=== PATIENT | female | born 1995 ===

== ENCOUNTER 2022-08-13 00:55 | Emergency (ER) | payer BC, SELFPAY ==
--- NOTE | 2022-08-13 00:57 | CRLHL7_ITS ---
For Patients: As a result of the Century Cures Act, medical imaging exams and procedure reports are released immediately into your electronic medical record. You may view this report before your referring provider. If you have questions, please contact your health care provider. INDICATION: Vaginal bleeding TECHNIQUE: Ultrasound OB pelvis transvaginal. Real time newman scale imaging of the pelvis was performed. COMPARISON: None FINDINGS: Gestational Sac: No intrauterine gestational sac or pole is identified. Uterus: 6.6 x 4 cm. There is an echogenic lesion in the uterine fundus measuring 2 cm in diameter which may represent a lipoleiomyoma. The endometrium is thickened and heterogeneous in appearance, measuring 12 mm. Small nabothian cysts are present in the cervix. Pelvis: The ovaries are of normal size. No adnexal masses are identified. No significant ascites noted. IMPRESSION: 1. No intrauterine IUP is identified. By the 2012 Society of Radiologists in Ultrasound consensus panel criteria, this is a of unknown location. Followup beta HCG and ultrasound is recommended to distinguish between a normal early IUP, complete , or ectopic . 2. If a spontaneous is clinically confirmed, followup is also recommended to exclude retained products of conception given the thickened, heterogeneous appearance to the endometrium. Dictated by Brian Lopez MD @ 08/13/2022 2:17:21 AM Dictated by: Brian Lopez MD @ 08/13/2022 02:17:31 (Electronically Signed)
[2022-08-13 01:00] VITALS: BP 122/80; PULSE 79; RESP 16; TEMP 37.1; O2SAT 98; BMI 25.1
--- NOTE | 2022-08-13 01:02 | ED.GENADULT ---
HPI - General Adult General Time Seen by Provider: 01:02 Date Seen: 08/13/22 Chief complaint: Vaginal Bleeding Stated complaint: Possible Miscarriage Time Seen by Provider: 08/13/22 00:57 Source: patient Mode of arrival: ambulatory Limitations: no limitations History of Present Illness HPI narrative: 27-year-old at 8+ 1 by LMP of June 17 who presents today vaginal bleeding and cramping started 5 hours prior to coming emergency department. Bleeding is more than a usual menstrual cycle and she reports ?soaking it tampon every hour. Abdominal pain is low and crampy. She has not taken anything for her symptoms. She denies shortness of breath or dizziness. Related Data Home Medications Medication Instructions Recorded Confirmed sertraline 100 mg tablet mg 08/13/22 Allergies Allergy/AdvReac Type Severity Reaction Status Date / Time tramadol AdvReac racing Verified 08/13/22 01:07 heart Review of Systems Status of ROS: Reports: 10 or more systems reviewed and unremarkable except as noted in History and below PFSH PFSH Social History Smoking Status: Never smoker How often do you have a drink containing alcohol: never AUDIT-C Alcohol total score: 0 Non-prescribed substance use: denies use Exam Narrative: Exam Narrative: General: Well-developed and well-nourished, no acute distress Head: Atraumatic and normocephalic Eyes: Pupils are equal reactive, extraocular motions intact, conjunctiva clear ENT: External nose and ears are normal, posterior pharynx without erythema or exudate Neck: No midline cervical tenderness, full spontaneous range of motion the neck, trachea midline, no adenopathy Heart: Regular rate and rhythm no murmurs or thrills Lungs: Clear to auscultation bilaterally without wheezes or crackles Abdomen: Soft, nontender, nondistended with active bowel sounds Musculoskeletal: No tenderness, deformity, or edema Neurologic: Awake, alert, and oriented x3, no gross focal neurologic deficits, cranial nerves intact as tested Psych: Mood and affect are appropriate Skin: No rashes Const: Vital Signs, click to edit/add: Vital Signs - 24 hr 08/13/22 01:00 Temperature 98.7 F Pulse Rate [Left P ulse Oximeter] 79 Respiratory Rate 16 Blood Pressure [Ri ght Upper Arm] 122/80 Pulse Oximetry 98 Oxygen Delivery Me thod Room Air Course Course Hospital Course: Patient seen examined, prior records reviewed. Differential diagnosis includes but not limited to subchorionic hemorrhage, miscarriage, vaginal laceration, cervical laceration. Patient presents today with vaginal bleeding low abdominal cramping, 1st trimester . Comfortable on exam with no tachycardia or hypotension. Labs and ultrasound ordered, pelvic exam will be performed. Reevaluation(s) Reevaluation #1: Chaperoned pelvic exam performed. Light to moderate bleeding from closed os. Time: 01:44 Reevaluation #2: Labs demonstrate normal hemoglobin, beta-hCG is 661 which is significantly lower movement be expected for based on dates. Ultrasound demonstrates blood in the endometrial canal but no evidence for intrauterine or gestational sac No evidence for ectopic . Symptoms tonight are most consistent with miscarriage. Patient is stable for discharge and should follow-up with hydraulic bull riveter operator in the morning. As no definite intrauterine or extrauterine is found today, patient will need follow-up beta-hCG and follow-up ultrasound to confirm either miscarriage or early ectopic. Time: 02:13 Vital Signs Vital signs: Initial Vital Signs Temperature 98.7 F 08/13/22 01:00 Temperature Source Temporal Artery Scan 08/13/22 01:00 Pulse Rate 79 08/13/22 01:00 Respiratory Rate 16 08/13/22 01:00 Blood Pressure 122/80 08/13/22 01:00 Blood Pressure Mean 94 08/13/22 01:00 Blood Pressure Position Supine 08/13/22 01:00 Pulse Oximetry 98 08/13/22 01:00 Oxygen Delivery Method 08/13/22 01:00 Vital Signs Temperature 98.7 F 08/13/22 01:00 Pulse Rate 79 08/13/22 01:00 Respiratory Rate 16 08/13/22 01:00 Blood Pressure 122/80 08/13/22 01:00 Pulse Oximetry 98 08/13/22 01:00 Oxygen Delivery Method 08/13/22 01:00 Temperature 98.7 F 08/13/22 01:00 Pulse Rate 79 08/13/22 01:00 Respiratory Rate 16 08/13/22 01:00 Blood Pressure 122/80 08/13/22 01:00 Pulse Oximetry 98 08/13/22 01:00 Oxygen Delivery Method 08/13/22 01:00 Medical Decision Making Medical Records Medical records reviewed: Yes I reviewed the patient's medical records Lab Data Lab results reviewed: Yes I reviewed the patient's lab results Labs: Lab Results 08/13/22 08/13/22 Range/Units 01:20 01:20 WBC 9.53 (4.50-11.00) K/uL RBC 4.63 (4.00-5.20) m/uL Hgb 13.8 (12.0-16.0) gm/dL Hct 41.4 (33.0-51.0) % MCV 89 (80-100) fL MCH 30 (26-34) pg MCHC 33 (32-36) gm/dL RDW Coeff of Heath 13.2 (11.5-15.5) % Plt Count 223 (140-440) K/uL Neut % (Auto) 56.7 (42.0-72.0) % Lymph % (Auto) 32.1 (20-44) % [place] % (Auto) 7.8 (0.0-11.0) % Eos % (Auto) 2.8 (0.0-7.0) % Baso % (Auto) 0.3 (0.0-3.0) % Neut # (Auto) 5.40 (1.7-7.0) K/uL Lymph # (Auto) 3.06 H (0.90-2.90) K/uL [place] # (Auto) 0.70 (0.00-0.90) K/UL Eos # (Auto) 0.27 (0.00-0.50) K/uL Baso # (Auto) 0.03 (0.00-0.30) K/uL Abs Immat Gran (auto) 0.03 (0.00-0.30) K/uL HCG, Quant 661.96 mIU/mL Discharge Plan Discharge Clinical Impression: Threatened Patient Disposition: Home, Self-Care Condition: Stable Instructions: Threatened Miscarriage (ED) Additional Instructions: Take Tylenol oxycodone as needed for pain. Follow-up with your hydraulic bull riveter operator today. Activity Level: No strenuous activity Discharge Diet: Regular Prescriptions: No Action sertraline 100 mg tablet Follow Up/Referrals: Tammy Waite MD [Staff Physician] - Provider,Not a Local [Referring] - Stand Alone Forms: [employer] Info Instructions
--- OUTSIDE RECORDS SUMMARY | 2022-08-13 01:25 | XMS_ITS | Clinical Summary ---
:1995 Author Organization [facility] Address [address] [place] [address] Care Team Providers Name Role Phone [facility], [facility]- Allergies Active Allergy Reactions Severity Noted Date Comments Oxymetazoline Rash Low 03/10/2022 Tramadol Dizziness Low 03/10/2022 Medications Medication Sig Dispensed Refills Start Date End Date Status sertraline (ZOLOFT) Take 100 mg by mouth 0 2 Active 100 MG tablet daily oxyCODONE IR Take 1-2 tablets 20 tablet 0 03/11/2022 Active (ROXICODONE) 5 MG (5-10 mg) by mouth tabletIndications: every 6 hours as Epistaxis needed for moderate to severe pain or breakthrough pain This medicine can make you sleepy! Do not take this while driving, operating heavy machinery, working, or with alcohol. sodium chloride [place] 1 spray into 0 03/11/2022 Active (OCEAN) 0.65 % left nostril 4 times nasal spray daily Active Problems Problem Noted Date Epistaxis 03/11/2022 Social History Tobacco Use Types Packs/Day Years Used Date Never Assessed Sex Assigned at Date Recorded Not on file Last Filed Vital Signs Vital Sign Reading Time Taken Comments Blood Pressure 137/90 03/11/2022 9:00 AM CDT Pulse 64 03/11/2022 9:00 AM CDT Temperature 36.9 ??C (98.4 ??F) 03/11/2022 9:00 AM CDT Respiratory Rate 16 03/11/2022 9:00 AM CDT Oxygen Saturation 98% 03/11/2022 9:00 AM CDT Inhaled Oxygen Concentration - - Weight 72.6 kg (160 lb) 03/11/2022 3:47 AM CDT Height 170.2 cm (5' 7) 03/11/2022 3:47 AM CDT Body Mass Index 25.06 03/11/2022 3:47 AM CDT Plan of Treatment Health Maintenance Due Date Last Done Comments ADVANCE CARE PLANNING 1993 ANNUAL REVIEW OF HM ORDERS 1993 PREVENTIVE CARE VISIT 1993 COVID-19 Vaccine (#1) 02/07/1994 HIV SCREENING 2008 HEPATITIS C SCREENING 2011 DTAP/TDAP/TD IMMUNIZATION (1 - 2018 Tdap) PHQ-2 (once per calendar year) 2021 INFLUENZA VACCINE (#1) 2022 PAP 06/18/2024 06/18/2021 HEPATITIS B IMMUNIZATION Aged Out No long er eligible based on patient's age to complete this topic IPV IMMUNIZATION Aged Out No longer eligi ble based on patient's age to complete this topic MENINGITIS IMMUNIZATION Aged Out No longe r eligible based on patient's age to complete this topic Pneumococcal Vaccine: Pediatrics Aged Out No longer eligible based on (0 to 5 Years) and At-Risk patie nt's age to complete Patients (6 to 64 Years) this to [facility] Insurance Payer Benefit Plan / Subscriber ID Effective Dates Phone Addre ss Type Group BCBS BCBS OUT OF [id number] 2020-Prese [phone] [address] [address] [place] [address] Advance Directives For more information, please contact: [phone] Latest Code Status on File Code Status Date Activated Date Inactivated Comments Full Code 03/11/2022 4:07 PM Code status determined by: Discussion with patient/ legal de cision maker Full Code 03/11/2022 2:21 AM 03/11/2022 4:07 PM All basic an d advanced life-sustaining interventions ar e performed as appropriate Code status determined by: Discussion with patient/ legal de cision maker Care Teams Manager Web Application Relationship Specialty Start Date End Date [facility] And PCP - General 03/10/22 [facility] [address] [place] [id number]
[2022-08-13 01:26] LABS: Basophils Absolute Auto 0.03 K/uL (0.00-0.30); Basophils Percent Auto 0.3 % (0.0-3.0); Eosinophils Absolute Auto 0.27 K/uL (0.00-0.50); Eosinophils Percent Auto 2.8 % (0.0-7.0); Hematocrit 41.4 % (33.0-51.0); Hemoglobin* 13.8 gm/dL (12.0-16.0); Immature Granulocytes Abs Auto 0.03 K/uL (0.00-0.30); Lymphocytes Absolute Auto 3.06 K/uL (0.90-2.90); Lymphocytes Percent Auto 32.1 % (20-44); Mean Corpuscular HGB Conc 33 gm/dL (32-36); Mean Corpuscular Hemoglobin 30 pg (26-34); Mean Corpuscular Volume 89 fL (80-100); Monocytes Percent Auto 7.8 % (0.0-11.0); Neutrophils Percent Auto 56.7 % (42.0-72.0); Platelet Count* 223 K/uL (140-440); RDW Coefficient of Variation % 13.2 % (11.5-15.5); Red Blood Count 4.63 m/uL (4.00-5.20); White Blood Count* 9.53 K/uL (4.50-11.00)
--- OUTSIDE RECORDS SUMMARY | 2022-08-13 01:26 | XMS_ITS | Encounter Summary ---
:1995 Author Organization [facility] Address [address] [place] [address]. [place] [address] Care Team Providers Name Role Phone [facility] Clinics- Reason for Visit Reason Comments Epistaxis Auth/Cert Specialty Diagnoses / Procedures Referred By Contact Refer red To Contact Med Surg Diagnoses Epistaxis Epistaxis Uu Obs [address] [facility] [place] [address] Phone: Fax: Referral ID Status Reason Start Date Expiration Date Visits Requ ested Visits Authorized [id number] 1 1 Encounter Details Date Type Department Care Team Description 03/10/2022 - Emergency [facility] Aram Ortega DO [address] [place] [address] Epistaxis; 03/11/2022 [facility] [address] Vernon Torres MD formerly [facility] [place] [address] Encounter for screening laboratory testi ng for severe acute respiratory syndrome coronavirus 2 (SARS-CoV-2); Observation [facility] Fawn Zambrano PA [address] [place] [address] [place] [address] Melancholia; [address] [facility] [place] [address] Social History Tobacco Use Types Packs/Day Years Used Date Never Assessed Sex Assigned at Date Recorded Not on file COVID-19 Exposure Response Date Recorded In the last 10 days, have you been in contact with No / Unsu re 03/10/2022 6:06 PM CDT someone who was confirmed or suspected to have Coronavirus/COVID-19? documented as of this encounter Last Filed Vital Signs Vital Sign Reading [...] Mass Index 25.06 03/11/2022 3:47 AM CDT documented in this encounter Discharge Summaries Jessica Butler PA-C - 03/11/2022 4:11 PM CDT [facility] Hospitalist Discharge Summary Date of Admission: 03/10/2022 Date of Discharge: 03/11/2022 Discharging Provider: Jessica Butler PA-C Discharge Service: Hospitalist Service Discharge Diagnoses Left-sided epistaxis controlled after nasal packing Follow-ups Needed After Discharge Follow-up Appointments Follow Up and recommended labs and tests Recommend calling your ear nose and throat team first thing tomorrow morning or later this evening, letting them know that he should be reevaluated in 3 to 5 days after your packing was placed to have this taken out. Unresulted Labs Ordered in the Past 30 Days of this Admission No orders found for last 31 day(s). These results will be followed up by NA Discharge Disposition Discharged to home Condition at discharge: Stable Hospital Course -Patient had cauterization performed 03/05/22 due to enlarged turbinates making it hard to breath. She had nasal packs removed on 03/09/22 in clinic. Denies strenuous activity, trauma, taking blood thinners. Yesterday while washing her face ~5:30pm, her nose spontaneously began bleeding. P/t [facility] ED where bleeding still uncontrolled despite intervention. Reports feeling lightheaded. Had continued bleeding despite interventions there and ENT recommended transfer to [facility] for neuro IR consult.??In ED here, HR 60's, BP 120-128/88-91, RR 18, SaO2 94-96% on RA, Temp 98.2. Labs show normal CBC. Covid 19 PCR negative. ENT consulted in ED and performed endoscopic control of epistaxis. Per ENT note: Nose was injected w/ 1% lidocaine w/ epinephrine 1-1000 at the lateral nasal wall near the middle turbinateas well as the septum. Surgicel was packed into the roof of the nasal cavity along the septum and this seemed to stop the bleeding. Placed 2 balloon posterior inflatable pack into the nose and secured i t to the cheek with a piece of tape.??There was good control of bleeding upon completion. In the ED the patient was given Dilaudid 0.5mg IV x2, Zofran 4mg IV x1. Patient given 1 g Rocephin IV overnight, as she was made n.p.o. with consideration of intervention if she continued to have bleeding. Overnight, patient had no further episodes of epistaxis. Hemoglobin this morning trended down to12.0 from 13.9 yesterday, still within reference range. She denied any lightheadedness or dizziness prior to discharge. Patient did still complain of some pain in the nasal sinuses this morning, which was improved with p.o. oxycodone 10 mg. Patient states she feels well enough to go home, and was discharged. Prescription for p.o. oxycodone sent to patient's preferred pharmacy in addition to Zofran (patient reports nausea taking p.o. medication) , Keflex. We discussed adding on p.o. acetaminophen as well for pain control, ice packs at home. She plans on calling her ENT team later tonight or tomorrowmorning when she discharges, as ENT recommends follow-up within 3 to 5 days for removal of the packing. Patient was made aware of caution with narcotic pain medication, as well as red flag signs for which she would need to return. Patient has no other questions or concerns. - ENT consulted - appreciate recommendations. Per ENT: -Avoid strenuous activity, avoid bending -Leave nasal pack in place for 5 days -Follow-up with surgeon in [place] in 5 days for pack removal which will be this Tuesday. Patientstates she will be calling them later tonight or tomorrow morning after discharge. -Suggest coverage with cephalexin 500 mg 3 times daily x 5 days -Nasal saline sprays 4 times daily to the left nare on the nasal packing -Due to her Afrin allergy she cannot spray Afrin on her packing however we did discuss holding pressure if it were to start bleeding again. Consultations This Hospital Stay ENT Code Status Full Code Time Spent on this Encounter I, Jessica Butler PA-C, personally saw the patient today and spent greater than 30 minutes discharging this patient. Jessica Butler PA-C [facility] UN[address] [address] [facility] [id number] Physical Exam Vital Signs: Temp: 98.4 ??F (36.9 ??C) Temp src: Oral BP: (!) 137/90 Pulse: 64 Resp: 16 SpO2: 98 % O2 Device: None (Room air) Weight: 160 lbs 0 oz GENERAL APPEARANCE: The patient is well developed, well appearing, and in no acute distress. HEAD: Normocephalic and atraumatic. EENT: Voice normal. Nasal packing in place, no current epistaxis. NECK: Trachea is midline.No lymphadenopathy or tenderness. LUNGS: Breath sounds are equal and clear bilaterally. No wheezes, rhonchi, or rales. HEART: Regular rate and normal rhythm. Radial pulses 2+ bilaterally. EXTREMITIES: No cyanosis, clubbing, or edema. NEUROLOGIC: No focal sensory or motor deficits are noted. PSYCHIATRIC: The patient is awake, alert. Appropriate mood and affect. SKIN: Warm, dry, and well perfused. Good turgor. Primary Care Physician [facility] Discharge Orders Reason for your hospital stay Uncontrollable nosebleed, which was controlled with nasal packing in the emergency department Activity Your activity upon discharge: no heavy lifting for 1 week or unless recommendations are given by your ear nose and throat team when you see them Follow Up and recommended labs and tests Recommend calling your ear nose and throat team first thing tomorrow morning or later this evening,letting them know that he should be reevaluated in 3 to 5 days after your packing was placed to havethis taken out. When to contact your care team Reasons to return to the emergency department would include if you develop return of bleeding, painout of proportion, fever, any other new or worsening symptoms. Discharge Instructions We discussed calling your ENT team later tonight or first thing tomorrow morning to schedule a follow-up for removal of the nasal packing. This should be done within 3 to 5 days since it was placed. Prescriptions for oxycodone, Zofran antinausea medicine, cephalexin antibiotic were sent to the pharmacy just outside of the emergency department, recommend starting the antibiotic first thing tomorrow, use any other medications as needed. Please be mindful of taking oxycodone, this can make you drowsy or sleepy. Tylenol can also be taken with this, 1000 mg 3 times daily. We discussed reasons to return including pain out of proportion, fever, recurrence of your nosebleed. Patient has no other questions or concerns at this time. Red flag signs were addressed, and they were in agreement with the patient care plan provided. Full Code Regular Diet Adult Significant Results and Procedures No results found for this or any previous visit. Discharge Medications Current Discharge Medication List START taking these medications Details cephALEXin (KEFLEX) 500 MG capsule Take 1 capsule (500 mg) by mouth 3 times daily for 5 days Qty: 15 capsule, Refills: 0 Associated Diagnoses: Epistaxis ondansetron (ZOFRAN-ODT) 4 MG ODT tab Take 1 tablet (4 mg) by mouth every 6 hours as needed for nausea or vomiting Qty: 12 tablet, Refills: 0 Associated Diagnoses: Epistaxis oxyCODONE IR (ROXICODONE) 5 MG tablet Take 1-2 tablets (5-10 mg) by mouth every 6 hours as needed for moderate to severe pain or breakthrough pain This medicine can make you sleepy! Do not take this while driving, operating heavy machinery, working, or with alcohol. Qty: 20 tablet, Refills: 0 Associated Diagnoses: Epistaxis sodium chloride (OCEAN) 0.65 % nasal spray [place] 1 spray into left nostril 4 times daily CONTINUE these medications which have NOT CHANGED Details sertraline (ZOLOFT) 100 MG tablet Take 100 mg by mouth daily Allergies Allergies Allergen Reactions ??? Afrin [Oxymetazoline] Rash ??? Tramadol Dizziness Associated attestation - Vernon Torres MD - 03/12/2022 10:18 AM CDT Physician Attestation I, Vernon Torres MD, personally saw and evaluated Birdgett Kyle as part of a shared visit. I have reviewed and discussed with the advanced practice provider their discharge plan. My ellison history or physical exam findings from the day of discharge: She is alert, afebrile, no bleeding, double mericel packs in place per ENT, quite uncomfortable but improving Ellison management decisions made by me: agree with assessment and plan Vernon Torres MD Date of Service (when I saw the patient): 03/11/22 documented in this encounter Medications at Time of Discharge Medication Sig Dispensed Refills Start Date End Date oxyCODONE IR Take 1-2 tablets (5-10 20 tablet 0 03/11/2022 (ROXICODONE) 5 MG mg) by mouth every 6 tabletIndications: hours as needed for Epistaxis moderate to severe pain or breakthrough pain This medicine can make you sleepy! Do not take this while driving, operating heavy machinery, working, or with alcohol. sertraline (ZOLOFT) Take 100 mg by mouth 0 2021 100 MG tablet daily sodium chloride Am[place] 1 spray into 0 03/11/2022 (OCEAN) 0.65 % nasal left nostril 4 times spray daily cephALEXin (KEFLEX) Take 1 capsule (500 15 capsule 0 022 03/16/2022 500 MG mg) by mouth 3 times capsuleIndications: daily for 5 days Epistaxis ondansetron Take 1 tablet (4 mg) 12 tablet 0 03/11/202211/2021 (ZOFRAN-ODT) 4 MG ODT by mouth every 6 hours tabIndications: as needed for nausea Epistaxis or vomiting documented as of this encounter Progress Notes Esther Escalante RN - 03/11/2022 3:30 AM CDT Pt admitted to Obs unit from [facility]. documented in this encounter H&P Notes Fawn Quevedo PA - 03/11/2022 2:30 AM CDT [facility] History and Physical - ED Observation Service Date of Admission: 03/10/2022 Assessment & Plan Bridgett Kyle is a 26 year old female admitted on 03/10/2022. She has a history of anxiety/depression who had a??bilateral??turbinate cautery on 03/05/22 with ??Michela??through [facility]??who presents via EMS from [facility] ED for further evaluation of uncontrolled epistaxis. ##. Epistaxis: Patient had cauterization performed 03/05/22 due to enlarged turbinates making it hardto breath. She had nasal packs removed on 03/09/22 in clinic. Denies strenuous activity, trauma, taking blood thinners. Yesterday while washing her face ~5:30pm, her nose spontaneously began bleeding. P/t [facility] ED where bleeding still uncontrolled despite intervention. Reports feeling lightheaded. Hadcontinued bleeding despite interventions there and ENT recommended transfer to [facility] for neuro IR consult. In ED here, HR 60's, BP 120-128/88-91, RR 18, SaO2 94-96% on RA, Temp 98.2. Labs show normal CBC. Covid 19 PCR negative. ENT consulted in ED and performed endoscopic control of epistaxis. Per ENT note: Nose was injected w/ 1% lidocaine w/ epinephrine 1- 1000 at the lateral nasal wall near the middle turbinate as well as the septum. Surgicel was packed into the roof of the nasal cavity along the septum and this seemed to stop the bleeding. Placed 2 balloon posterior inflatable pack into the noseand secured it to the cheek with a piece of tape. There was good control of bleeding upon completion. In the ED the patient was given Dilaudid 0.5mg IV x2, Zofran 4mg IV x1. - ENT consulted - appreciate recommendations. Per ENT: -Avoid strenuous activity, avoid bending -Leave nasal pack in place for 5 days -Follow-up with surgeon in [place] in 5 days for pack removal which will be this Tuesday -Suggest coverage with cephalexin 500 mg 3 times daily for the next 5 days -Nasal saline sprays 4 times daily to the left nare on the nasal packing -Agree with overnight observation in the emergency department to ensure no further bleeding -Due to her Afrin allergy she cannot spray Afrin on her packing however we did discuss holding pressure if it were to start bleeding again. - Return to emergency department if any severe nasal bleeding which cannot be controlled at home. -Rocephin 1gm IV x 1 as patient is NPO and concerned about upset stomach with oral abx -NPO -MIVF NS 100ml/hr -Dilaudid 0.5mg IV q2h -Tylenol prn -Repeat CBC, BMP in AM ##. Depression/Anxiety: -Resume Zoloft at discharge (patient does not want to take on an empty stomach) Diet: NPO for Medical/Clinical Reasons Except for: Ice Chips DVT Prophylaxis: Ambulate every shift [place] Catheter: Not present Central Lines: None Cardiac Monitoring: None Code Status: Full Code Clinically Significant Risk Factors Present on Admission # Overweight: Estimated body mass index is 25.06 kg/m?? as calculated from the following: Height as of this encounter: 1.702 m (5' 7). Weight as of this encounter: 72.6 kg (160 lb). Disposition Plan Expected Discharge: Anticipated discharge location: Awaiting care coordination huddle Delays: The patient's care was discussed with the Attending Physician, Dr. Torres. RADHA Friedman ED Observation Service [facility] Securely message with the Big Screen Tools Web Console (learn more here) Text page via [facility] Paging/Directory Chief Complaint Epistaxis History is obtained from the patient History of Present Illness Bridgett Kyle is a 26 year old female with a history of anxiety/depression who had a??bilateral??turbinate cautery on 03/05/22 with ??Michela??through [facility]??who presents via EMS from [facility] ED for further evaluation of uncontrolled epistaxis. Patient states she has not had not nose bleeds and cauterization was performed due to enlarged turbinates making it hard to breath. She had nasal packs removed on 03/09/22 in his clinic. States she has not been involved in anystrenuous activity; denies any trauma. Yesterday while washing her face around 5:30pm, her nose spontaneously began bleeding. She reports massive bleeding and was unable to stop the bleeding so she presented to the [facility] ED where bleeding still uncontrolled despite intervention. She reports feeling lightheaded. She reported to the ED that she had bad nosebleeds as a kid, but nothing like this one. She last ate around 12 pm. No other symptoms noted. Does not take any blood thinners. ?? Per chart review patient presented to the [facility] ED for left-sided epistaxis onset 30 min prior to arrival. She had continued bleeding despite interventions there and ENT recommended transfer to [facility] for neuro IR consult. Per [facility] ED note, initial attempt to control bleeding included clearing of thenose, application of topical TXA (Afrin allergy), and subsequent 7.5 cm anterior/posterior Rhino Rocket. This resulted in transient control of epistaxis, though subsequently developed brisk bleeding. ENT came to bedside and performed additional packing and cauterization of the patient's left nare which resulted in transient control of bleeding, however, bleeding did recur. At [facility] she was given: 1834: Ativan, 0.5 mg, IV 1835: Tranexamic acid topical x 1 1905: 500ml NS bolus 2007: Arzol, 2 Applicators, Topical 2008: Lidocaine 1% with epi, 10 mL, Intradermal 2008: Oxycodone, 5 mg, Oral 2055: Dilaudid 0.5 mg IV 2151: Dilaudid 0.5mg IV 2151: Zofran 4mg IV She was given 4mg zofran and 0.5mg dilaudid en route.?? In the ED here, HR 60's, BP 120-128/88-91, RR 18, SaO2 94-96% on RA, Temp 98.2. Labs show normal CBC. Covid 19 PCR negative. ENT was consulted in ED and performed endoscopic control of epistaxis. Per ENT Note: There is copious clots and blood in the left nasal cavity which obscures visualization. I attempted to suction the clots and blood but there was still excessive bleeding making it difficult. I then used pledgets soaked in lidocaine and packed the nose then remove those and packed the nose with cotton soaked in lidocaine. She continued to bleed. Then the nose was suctioned of all clots and bleeding CV coming from superiorly. There is a small laceration on the anterior septum which was cauterized with silver nitrate. There is also some granulation type tissue on the head of the left inferior turbinate which was cauterized with silver nitrate. There was still bleeding was seen be coming from more superior. I could not visualize this area as was swollen and blood obscuring the view. I injected the nose with a solution of 1% lidocaine with epinephrine 1-1000 at the lateral nasal wall near the middle turbinate as well as the septum. This did help with control of the bleeding as well asanesthesia. I again tried to clean out clots and still did not see a obvious major source of bleeding. Surgicel was packed into the roof of the nasal cavity cavity along the septum and this seemed to stop the bleeding. I then placed 2 balloon posterior inflatable pack into the nose and secured it to the cheek with a piece of tape. There was good control of bleeding upon completion. The headlight and the flexible scope was used for visualization at various times during treatment. In the ED the patient was given: Dilaudid 0.5mg IV 0034 Dilaudid 0.5mg IV 0149 Lidocaine injection 00.4 Zofran 4mg IV 0247 Review of Systems All other ROS negative except those mentioned in above note. Past Medical History I have reviewed this patient's medical history and updated it with pertinent information if needed. No past medical history on file. Past Surgical History I have reviewed this patient's surgical history and updated it with pertinent information if needed. No past surgical history on file. Social History I have reviewed this patient's social history and updated it with pertinent information if needed. Family History Prior to Admission Medications Prior to Admission Medications Prescriptions Last Dose Informant Patient Reported? Taking? sertraline (ZOLOFT) 100 MG tablet Yes No Sig: Take 100 mg by mouth daily Facility-Administered Medications: None Allergies Allergies Allergen Reactions ??? Afrin [Oxymetazoline] Rash ??? Tramadol Dizziness Physical Exam Vital Signs: Temp: 98.2 ??F (36.8 ??C) Temp src: Oral BP: (!) 120/91 Pulse: 62 Resp: 18 SpO2: 96 % O2 Device: None (Room air) Weight: 160 lbs 0 oz Constitutional: awake, alert, cooperative, uncomfortable, and appears stated age Eyes: Lids and lashes normal, pupils equal, round and reactive to light, extra ocular muscles intact, sclera clear, conjunctiva normal ENT: Normocephalic, without obvious abnormality, atraumatic, bilateral nares with packing and dry blood Hematologic / Lymphatic: no cervical lymphadenopathy Respiratory: No increased work of breathing, good air exchange, clear to auscultation bilaterally, no crackles or wheezing Cardiovascular: Normal apical impulse, regular rate and rhythm, normal S1 and S2, no S3 or S4, and no murmur noted GI: No scars, normal bowel sounds, soft, non-distended, non-tender, no masses palpated, no hepatosplenomegally Skin: no bruising or bleeding Musculoskeletal: There is no redness, warmth, or swelling of the joints. Full range of motion noted.Motor strength is 5 out of 5 all extremities bilaterally. Tone is normal. Neurologic: Awake, alert, oriented to name, place and time. Cranial nerves II- XII are grossly intact. Motor is 5 out of 5 bilaterally. Neuropsychiatric: General: normal, calm and normal eye contact Data Data reviewed today: I reviewed all medications, new labs and imaging results over the last 24 hours. I personally reviewed Recent Labs Lab 03/10/22 1837 WBC 7.0 HGB 13.9 MCV 92 PLT 217 Most Recent 3 CBC's:Recent Labs Lab Test 03/10/22 1837 WBC 7.0 HGB 13.9 MCV 92 PLT 217 Most Recent 3 BMP's:No lab results found. Most Recent 3 INR's:No lab results found. 7.0 \ 13.9 / 217 N 51 L N/A N/A N/A N/A / N/A ALT N/A AST N/A AP N/A ALB N/A Ca N/A N/A N/A N/A \ % RETIC N/A LDH N/A Troponin N/A BNP N/A CK N/A INR N/A PTT N/A D-dimer N/A Fibrinogen N/A Antithrombin N/A Ferritin N/A CRP N/A IL-6 N/A No results found for this or any previous visit (from the past 24 hour(s)). Associated attestation - Vernon Torres MD - 03/12/2022 10:32 AM CDT Physician Attestation I, Vernon Torrse MD, have reviewed the advanced practice provider's history, physical and plan Jluis Kyle. I did not participate in a shared visit by interviewing or examining the patient and this should be billed as an advanced practice provider only visit. Vernon Torres MD Date of Service (when I saw the patient): I did not personally see this patient today. documented in this encounter Consult Notes Johann Moon MD - 03/11/2022 1:32 AM CDT Otolaryngology Consult Note March 11, 2022 CC: epistaxis HPI: Bridgett Kyle is a 26 year old female who recently had a bilateral inferior turbinate reduction performed by Dr. Abernathy in [facility] recently. Earlier today she started experiencing a copious left-sided nosebleed and she was seen at the [facility] emergency department. ENT saw her at [facility] where he saw bleeding coming from superior in her nose as well asthe caudal septum. Silver nitrate was used to cauterize the anterior septum, head of the left inferior turbinate and Surgicel was used to pack the roof of the nasal cavity. He then placed a anterior-posterior balloon pack. This initially controlled the epistaxis however she then continued to have bleeding out of the left nare and down her throat. She was thus transferred to the [place] emergency department for neuro IR embolization. ENT was consulted here to determine if there was any further bedside control to be done first. No past medical history on file. No past surgical history on file. No current outpatient medications on file. Allergies Allergen Reactions ??? Afrin [Oxymetazoline] Rash ??? Tramadol Dizziness Social History Socioeconomic History ??? Marital status: Spouse name: Not on file ??? Number of children: Not on file ??? Years of education: Not on file ??? Highest education level: Not on file Occupational History ??? Not on file Tobacco Use ??? Smoking status: Not on file ??? Smokeless tobacco: Not on file Substance and Sexual Activity ??? Alcohol use: Not on file ??? Drug use: Not on file ??? Sexual activity: Not on file Other Topics Concern ??? Not on file Social History Narrative ??? Not on file Social Determinants of Health Financial Resource Strain: Not on file Food Insecurity: Not on file Transportation Needs: Not on file Physical Activity: Not on file Stress: Not on file Social Connections: Not on file Intimate Partner Violence: Not on file Housing Stability: Not on file No family history on file. ROS: 12 point review of systems is negative unless noted in HPI. PHYSICAL EXAM: BP (!) 120/91 Pulse 62 Temp 98.2 ??F (36.8 ??C) (Oral) Resp 18 Ht 1.702 m (5' 7) Wt 72.6 kg (160 lb) LMP 03/10/2022 SpO2 96% BMI 25.06 kg/m?? General: Sitting upright in bed, mild distress HEAD: normocephalic, atraumatic Face: symmetrical, CN VII intact bilaterally (HB 1), no swelling, edema, or erythema. Sensation V1-V3 intact and equal bilaterally. Eyes: EOMI without spontaneous or gaze evoked nystagmus, PERRL, clear sclera Ears: no tragal tenderness, external ear canal open and clear bilaterally, TMs clear bilaterally Nose: Left-sided Rhino Rocket in place taped to the cheek. There is visible clot in her oropharynx and some slow bleeding dripping down the back of her throat. Mouth: moist, no ulcers, no jaw or tooth tenderness, tongue midline and symmetric Oropharynx: Mild bloodstaining with a slow ooze. Neck: no LAD, trachea midline Neuro: cranial nerves 2-12 grossly intact Respiratory: breathing non-labored on RA, no stridor Skin: no rashes or skin lesions of the face/neck Psych: pleasant affect Cardio: extremities warm and well perfused Control of epistaxis, rigid endoscopy: To evaluate for epistaxis, the left nasal packing balloons were deflated and the nasal pack removed.The left nare was examined under endoscopic guidance. There was clot in the posterior oropharynx that was suctioned away and visible Surgicel lining the roof of the nose that was left undisturbed. The left inferior turbinate and caudal septum had been cauterized earlier and there was visible silver nitrate present. After removing the clot there was some fresh bleeding from the left caudal septum underneath the Surgicel. There was no other obvious bleeding on the inferior turbinate or posteriorly in the nose. The nose was then sprayed with 2% lidocaine. Two 8 cm Merocel's were then tied together andplaced [id number] in the left nare and inflated with normal saline. This immediately tamponaded the nasal septal bleeding and slowed the dripping down her oropharynx. The patient was then let to restfor 15 minutes and following reevaluation there was no further bleeding anteriorly or posteriorly down her oropharynx. She tolerated the procedure well and stated that the bleeding was more controlled than it had been so far. ROUTINE IP LABS (Last four results) BMPNo lab results found in last 7 days. CBC Recent Labs Lab 03/10/22 1837 WBC 7.0 RBC 4.62 HGB 13.9 HCT 42.7 MCV 92 MCH 30.1 MCHC 32.6 RDW 12.5 PLT 217 INRNo lab results found in last 7 days. Assessment and Plan Bridgett Kyle is a 26 year old female with a recent turbinoplasty at [facility] presents for a transfer for epistaxis. Two 8 cm Merocel's were placed in the left nare. We discussed avoiding any nose blowing, lifting, bending. We recommended that she make an appointment with her surgeon in [place] to have her nasal packing removed in 3-5 days. If she is unable to make an appointment in [place] she can contact our ENT clinic to have her packing removed. -- Recommend cephalexin for antibiotic prophylactic coverage for the nasal packing --Nasal saline sprays 4 times daily to the left nare on the nasal packing -- Agree with overnight observation in the emergency department to ensure no further bleeding -- Due to her Afrin allergy she cannot spray Afrin on her packing however we did discuss holding pressure if it were to start bleeding again. To be discussed with Dr. Red Howell MD Otolaryngology-Head & Neck Surgery, PGY-2 Please page ENT with questions by dialing [phone] and entering job code [phone] when prompted. documented in this encounter ED Notes Amparo Henson RN - 03/10/2022 11:09 PM CDT Pt transferred from [facility] for uncontrolled nosebleed needing IR intervention. Given 4mg zofran and 0.5mg dilaudid en route. Drew Moctezuma RN - 03/10/2022 11:09 PM CDT Bed: ED02 Expected date: Expected time: [facility]: [facility] - 03/10/2022 11:08 PM CDT ED Provider Note [facility] History Chief Complaint Patient presents with ??? Epistaxis The history is provided by the patient, the EMS personnel and medical records. Bridgett Kyle is a 26 year old female who had a bilateral turbinate cautery on 03/05 through [facility] who presents via EMS from [facility] ED for further evaluation of uncontrolled epistaxis. Given 4mg zofran and 0.5mg dilaudid en route. She has remained hemodynamically stable. Patient reports that her nose spontaneously began bleeding while washing her face tonight. She was unable to stop the bleeding so she presented to the [facility] ED where bleeding still uncontrolled despite intervention. She reports bleeding down the back of the throat unless leaning forward. She had bad nosebleeds as a kid, but nothing like this until the one prompting the cauterization a few days ago. She last ate around 12 pm. No other symptoms noted. Per chart review patient presented to the [facility] ED for left-sided epistaxis onset 30 min prior to arrival. She had continued bleeding despite interventions there and ENT recommended transfer to [facility] for neuro IR consult. Interventions @ [facility]: 183: Ativan, 0.5 mg, IV 1835: Cyklokapron, Topical 1905: Normal Saline, 1 liter, IV bolus 2007: Arzol, 2 Applicators, Topical 2008: Lidocaine 1% with epi, 10 mL, Intradermal 2008: Oxycodone, 5 mg, Oral 2055: Dilaudid, 0.5 mg, IV Past Medical History No past medical history on file. No past surgical history on file. No current outpatient medications on file. Allergies Allergen Reactions ??? Afrin [Oxymetazoline] Rash ??? Tramadol Dizziness Family History No family history on file. Social History Past medical history, past surgical history, medications, allergies, family history, and social history were reviewed with the patient. No additional pertinent items. Review of Systems A complete review of systems was performed with pertinent positives and negatives noted in the HPI, and all other systems negative. Physical Exam BP: 128/88 Pulse: 66 Temp: 98.2 ??F (36.8 ??C) Resp: 18 Height: 170.2 cm (5' 7) Weight: 72.6 kg (160 lb) SpO2: 94 % Physical Exam Vitals and nursing note reviewed. Constitutional: General: She is in acute distress. Appearance: She is not diaphoretic. HENT: Head: Atraumatic. Nose: Comments: Packing in place in left nare. Frequently spitting out blood. Mouth/Throat: Pharynx: No oropharyngeal exudate. Eyes: General: No scleral icterus. Pupils: Pupils are equal, round, and reactive to light. Cardiovascular: Heart sounds: Normal heart sounds. Pulmonary: Effort: No respiratory distress. Breath sounds: Normal breath sounds. Abdominal: General: Bowel sounds are normal. Palpations: Abdomen is soft. Tenderness: There is no abdominal tenderness. Musculoskeletal: General: No tenderness. Skin: General: Skin is warm. Findings: No rash. ED Course Procedures Results for orders placed or performed during the hospital encounter of 03/10/22 HCG QUALitative (blood) Status: Normal Result Value Ref Range hCG Serum Qualitative Negative Negative CBC with platelets and differential Status: None Result Value Ref Range WBC Count 7.0 4.0 - 11.0 10e3/uL RBC Count 4.62 3.80 - 5.20 10e6/uL Hemoglobin 13.9 11.7 - 15.7 g/dL Hematocrit 42.7 35.0 - 47.0 % MCV 92 78 - 100 fL MCH 30.1 26.5 - 33.0 pg MCHC 32.6 31.5 - 36.5 g/dL RDW 12.5 10.0 - 15.0 % Platelet Count 217 150 - 450 10e3/uL % Neutrophils 51 % % Lymphocytes 40 % % Monocytes 5 % % Eosinophils 4 % % Basophils 0 % % Immature Granulocytes 0 % NRBCs per 100 WBC 0 <1 /100 Absolute Neutrophils 3.5 1.6 - 8.3 10e3/uL Absolute Lymphocytes 2.8 0.8 - 5.3 10e3/uL Absolute Monocytes 0.4 0.0 - 1.3 10e3/uL Absolute Eosinophils 0.3 0.0 - 0.7 10e3/uL Absolute Basophils 0.0 0.0 - 0.2 10e3/uL Absolute Immature Granulocytes 0.0 <=0.4 10e3/uL Absolute NRBCs 0.0 10e3/uL CBC with platelets differential Status: None Narrative The following orders were created for panel order CBC with platelets differential. Procedure Abnormality Status --------- ------ CBC with platelets and d...[[id number]] Final result Please view results for these tests on the individual orders. Medications - No data to display Assessments & Plan (with Medical Decision Making) This is a 26-year-old female who was transferred due to epistaxis. Patient was seen at [facility] with epistaxis that occurred earlier today. ENT was unable to stop bleeding and patient was transferred to this facility for likely intervention by Neuro IR. I discussed the case with Neuro IR. They also reque sted that ENT see patient here to attempt to stop bleeding. Patient was seen by ENT who was able to successfully stop bleeding. They recommend observing patient as well as discharging on a course of Keflex after observation. They recommend following up with original site where patient was seen on 03/05. Patient will be placed on Observation overnight and if she has recurrence of bleeding will need intervention by Neuro IR. I have reviewed the nursing notes. I have reviewed the findings, diagnosis, plan and need for followup with the patient. New Prescriptions No medications on file Final diagnoses: None Lolita Regalado, am serving as a trained medical claims analyst to document services personally performed by Aram Ortega DO, based on the provider's statements to me. Aram Regalado DO, was physically present and have reviewed and verified the accuracy of this note documented by Lolita Adorno. -- Aram Ortega DO [facility] EMERGENCY DEPARTMENT 03/10/2022 Aram Ortega DO 03/11/22 0306 documented in this encounter Miscellaneous Notes Plan of Care - Lynn Love RN - 03/11/2022 5:36 PM CDT Goal Outcome Evaluation: Discharge instructions given and explained to the patient. The patient verbalized understanding. Theperipheral iv was removed. The patient discharged with her belongings. Plan of Care - Calli Ordoñez RN - 03/11/2022 8:00 AM CDT Goal Outcome Evaluation: -diagnostic tests and consults completed and resulted: in progress -vital signs normal or at patient baseline: met -tolerating oral intake to maintain hydration: not met -adequate pain control on oral analgesics: not met -tolerating oral antibiotics or has plans for home infusion setup: not met -returns to baseline functional status: -safe disposition plan has been identified: not met -nose bleed stopped: met -ENT consult completed with dispo plan: not met Plan of Care - Lupis Santos RN - 03/11/2022 4:00 AM CDT Goal Outcome Evaluation: -diagnostic tests and consults completed and resulted: in progress -vital signs normal or at patient baseline: met -tolerating oral intake to maintain hydration: not met -adequate pain control on oral analgesics: not met -tolerating oral antibiotics or has plans for home infusion setup: not met -returns to baseline functional status: -safe disposition plan has been identified: not met -nose bleed stopped: met -ENT consult completed with dispo plan: not met documented in this encounter Plan of Treatment Not on filedocumented as of this encounter Procedures Procedure Name Priority Date/Time Associated Comments Diagnosis CBC WITH PLATELETS AND STAT 03/11/2022 5:52 AM Results for this DIFFERENTIAL CDT procedure are i n the results section. CBC WITH PLATELETS & STAT 03/11/2022 5:52 AM R esults for this DIFFERENTIAL CDT procedure are i n the results section. INR Routine 03/11/2022 5:52 AM Results f or this CDT procedure are i n the results section. COMPREHENSIVE Routine 03/11/2022 5:52 AM Results for this METABOLIC PANEL CDT procedure ar e in the results section. COVID-19 VIRUS STAT 03/11/2022 1:52 AM Results for this (CORONAVIRUS) BY PCR CDT procedu re are in the results section. documented in this encounter Results CBC with platelets and differential (03/11/2022 5:52 AM CDT) Analysis Performed At Patho logist Time Signature WBC Count 6.8 4.0 - 11.0 03/11/2022 [facility] 10e3/uL 6:27 AM CDT RBC Count 4.00 3.80 - 03/11/2022 [facility] 5.20 6:27 AM CDT 10e6/uL Hemoglobin 12.0 11.7 - 03/11/2022 [facility] 15.7 g/dL 6:27 AM CDT Hematocrit 37.0 35.0 - 03/11/2022 [facility] 47.0 % 6:27 AM CDT MCV 93 78 - 100 03/11/2022 [facility] fL 6:27 AM CDT MCH 30.0 26.5 - 03/11/2022 [facility] 33.0 pg 6:27 AM CDT MCHC 32.4 31.5 - 03/11/2022 [facility] 36.5 g/dL 6:27 AM CDT RDW 12.9 10.0 - 03/11/2022 [facility] 15.0 % 6:27 AM CDT Platelet Count 196 150 - 450 03/11/2022 [facility] 10e3/uL 6:27 AM CDT % Neutrophils 58 % 03/11/2022 [facility] 6:27 AM CDT % Lymphocytes 31 % 03/11/2022 [facility] 6:27 AM CDT % Monocytes 8 % 03/11/2022 [facility] 6:27 AM CDT % Eosinophils 3 % 03/11/2022 [facility] 6:27 AM CDT % Basophils 0 % 03/11/2022 [facility] 6:27 AM CDT % Immature 0 % 03/11/2022 [facility] Granulocytes 6:27 AM CDT NRBCs per 100 WBC 0 <1 /100 03/11/2022 [facility] RY 6:27 AM CDT Absolute 4.0 1.6 - 8.3 03/11/2022 [facility] Neutrophils 10e3/uL 6:27 AM CDT Absolute 2.1 0.8 - 5.3 03/11/2022 [facility] Lymphocytes 10e3/uL 6:27 AM CDT Absolute 0.5 0.0 - 1.3 03/11/2022 [facility] Monocytes 10e3/uL 6:27 AM CDT Absolute 0.2 0.0 - 0.7 03/11/2022 [facility] Eosinophils 10e3/uL 6:27 AM CDT Absolute 0.0 0.0 - 0.2 03/11/2022 [facility] Basophils 10e3/uL 6:27 AM CDT Absolute Immature 0.0 <=0.4 03/11/2022 [facility] Granulocytes 10e3/uL 6:27 AM CDT Absolute NRBCs 0.0 10e3/uL 03/11/2022 [facility] 6:27 AM CDT Specimen Anatomical Collection Method / Collection Time Recei radha Time (Source) Location / Volume Laterality Blood STRUCTURE OF LEFT Venipuncture / 03/11/2022 5:52 03/11 6:20 UPPER LIMB / Unknown AM CDT AM CDT Unknown Fawn GARCIA [facility] - BLOOD ORDERABLES Performing Organization Address City/State/ZIP Code Phon [place] [address] Lab [address] [facility], [address]80 INR (03/11/2022 5:52 AM CDT) P athologist Signature INR 1.09 0.85 - 1.15 03/11/2022 [facility] 6:35 AM CDT Specimen Anatomical Collection Method / Collection Time Recei radha Time (Source) Location / Volume Laterality Blood STRUCTURE OF LEFT Venipuncture / 03/11/2022 5:52 03/11 6:19 UPPER LIMB / Unknown AM CDT AM CDT Unknown Fawn GARCIA LAB - BLOOD ORDERABLES Performing Organization Address City/[facility] Phon [place] [address] Lab [address] [facility], Room 3-580 (ABNORMAL) Comprehensive metabolic panel (03/11/2022 5:52 AM CDT) P athologist Signature Sodium 141 133 - 144 03/11/2022 [facility] mmol/L 6:52 AM CDT Potassium 4.0 3.4 - 5.3 03/11/2022 [facility] mmol/L 6:52 AM CDT Chloride 108 94 - 109 03/11/2022 [facility] mmol/L 6:52 AM CDT Carbon Dioxide 30 20 - 32 03/11/2022 [facility] (CO2) mmol/L 6:52 AM CDT Comment: This result was previously supp ressed from the chart. Anion Gap 3 3 - 14 mmol/L 03/11/2022 6:52 AM CDT [facility] Comment: This result was previously supp ressed from the chart. Urea Nitrogen 14 7 - 30 mg/dL 03/11/2022 6:52 AM CDT [facility] Comment: This result was previously supp ressed from the chart. Creatinine 0.78 0.52 - 1.04 mg/dL 03/11/2022 6:52 AM CD T [facility] Comment: This result was previously supp ressed from the chart. Calcium 8.2 (L) 8.5 - 10.1 mg/dL 03/11/2022 6:52 AM CDT [facility] Comment: This result was previously supp ressed from the chart. Glucose 97 70 - 99 mg/dL 03/11/2022 6:52 AM CDT [facility] Comment: This result was previously supp ressed from the chart. Alkaline Phosphatase 34 (L) 40 - 150 U/L 03/11/2022 6:52 AM CDT [facility] Comment: This result was previously supp ressed from the chart. AST 11 0 - 45 U/L 03/11/2022 6:52 AM CDT [facility] Comment: This result was previously supp ressed from the chart. ALT 12 0 - 50 U/L 03/11/2022 6:52 AM CDT [facility] Comment: This result was previously supp ressed from the chart. Protein Total 6.5 (L) 6.8 - 8.8 g/dL 03/11/2022 6:52 AM CD T [facility] Comment: This result was previously supp ressed from the chart. Albumin 3.4 3.4 - 5.0 g/dL 03/11/2022 6:52 AM CDT [facility] Comment: This result was previously supp ressed from the chart. Bilirubin Total 0.3 0.2 - 1.3 mg/dL 03/11/2022 6:52 AM CDT [facility] Comment: This result was previously supp ressed from the chart. GFR Estimate >90 >60 mL/min/1.73m2 03/11/2022 6:52 AM CDT [facility] Comment: Effective November 03, 2021 eGFRcr in ad ults is calculated using the 2020 CKD- EPI creatinine equation which includes age and gender (Mesha et al., NEJM, DOI: 10.1056/UPQXkc3830348) This result was previously suppressed fr om the chart. Specimen Anatomical Collection Method / Collection Time Recei radha Time (Source) Location / Volume Laterality Blood STRUCTURE OF LEFT Venipuncture / 03/11/2022 5:52 03/11 6:19 UPPER LIMB / Unknown AM CDT AM CDT Unknown Fawn GARCIA LAB - BLOOD ORDERABLES Performing Organization Address City/State/ZIP Code Phon e Number [facility] [place] [address] [phone] Lab [address] [facility] [address], Room 3[address]580 Asymptomatic COVID-19 Virus (Coronavirus) by PCR Oropharynx (03/11/2022 1:52 AM CDT) [facility] Method Time Signature SARS CoV2 PCR Negative Negative, 03/11/2022 [facility] Testing sent to 2:56 AM CDT LABORATORY reference lab. Results will be returned via unsolicited result Comment: NEGATIVE: SARS-CoV-2 (COVID-19) RNA not detected, presumed negative. Specimen Anatomical Location Collection Method Collection Time Received Time (Source) / Laterality / Volume Swab OROPHARYNGEAL Non-blood 03/11/2022 1:52 03/11/2022 2:01 STRUCTURE / Unknown Collection / AM CDT AM CDT Unknown Narrative [facility] - 03/11/2022 2:56 AM C DT Testing was performed using the Xpert Xpress SARS-CoV-2 Assay on the [employer]. A dditional information about this Emergency Use Authorization (EUA) a ssay can be found via the Lab Guide. This test should be ordered for t he detection of SARS-CoV-2 in individuals who meet SARS-CoV-2 clinical and/or epidemiological criteria. Test performance is unknown in asymptomatic patients. This test is for in vitro diagnostic use unde r the FDA EUA for laboratories certified under CLIA to per form high complexity testing. This test has not been FDA cleared or ap proved. A negative result does not rule out the presence of PCR in hibitors in the specimen or target RNA in concentration below the li benson of detection for the assay. The possibility of a false negati ve should be considered if the patient's recent exposure or clinica l presentation suggests COVID-19. This test was validated by the [facility]. This lab oratory is certified under the Clinical Laboratory Improvement Amen dments of 1987 (CLIA-88) as qualified to perform high complexity lab oratory testing. Aram Ortega DO LAB - MICRO GENERAL ORDERABL ES Performing Organization Address City/State/ZIP Code Phon e Number [facility] [place] [id number] Diag. Lab [address] [facility], [address] documented in this encounter Visit Diagnoses Diagnosis Epistaxis Encounter for screening laboratory testi ng for severe acute respiratory syndrome coronavirus 2 (SARS-CoV-2) Melancholia Unspecified episodic mood disorder Anxiety Anxiety state, unspecified documented in this encounter Admitting Diagnoses Diagnosis Epistaxis documented in this encounter Administered Medications Inactive Administered Medications - up to 3 most recent administrations Medication Order MAR Action Action Date Dose Rate Site acetaminophen (TYLENOL) Suppository 650 mg 650 mg, Rectal, EVERY 6 HOURS PRN, mild pain, other, and adjunct with moderate or severe pain or per patient request, Star ting on Yamil[place] 03/11/22 at 0221, Alternate with ibuprofen if ordered. Maximum acetaminop hen dose from all sources = 75 mg/kg/day not to exceed 4 grams/day. acetaminophen (TYLENOL) tablet 650 mg 650 mg, Oral, EVERY 6 HOURS PRN, mild pain, other, and adjunct with moderate or severe pain or per patient request, Star ting on [place]il[place] 03/11/22 at 0221, Alternate with ibuprofen if ordered. Maximum acetaminop hen dose from all sources = 75 mg/kg/day not to exceed 4 grams/day. cefTRIAXone (ROCEPHIN) 1 g vial to attach to New Bag 2:43 AM CDT 1 g NS 100 mL bag for ADULTS or NS 50 mL bag for PEDS STAT, 1 g, Intravenous, ONCE, On Yamilka 03/11/22 at 0230, For 1 dose, Indications: Skin and Soft Tissue Infection docusate sodium (COLACE) capsule 100 mg 100 mg, Oral, 2 TIMES DAILY, First dose on Yamilka 03/11/22 at 0800, Hold for loose stools. HYDROmorphone (PF) (DILAUDID) injection 0.5 Given 03/11/2022 1:49 AM CDT 0.5 mg mg 0.5 mg, Intravenous, EVERY 15 MIN PRN, moderate to severe pain, Starting on [place]ilka 03/11/22 at 0025, For 3 doses, Notify the provider to assess for uncontrolled pain or analgesic side effects. 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 Given 03/11/2022 12:34 AM CDT 0.5 mg HYDROmorphone (PF) (DILAUDID) injection 0.5 Given 03/11/2022 2:47 AM CDT 0.5 mg mg 0.5 mg, Intravenous, ONCE, On [place]il[place] 03/11/22 at 0245, For 1 dose HYDROmorphone (PF) (DILAUDID) injection 0.5 Given 03/11/2022 1:11 PM CDT 0.5 mg mg 0.5 mg, Intravenous, EVERY 2 HOURS PRN, moderate to severe pain, Starting on [place]ilka 03/11/22 at 0438 Given 03/11/2022 11:18 AM CDT 0.5 mg Given 03/11/2022 8:56 AM CDT 0.5 mg lidocaine (PF) (XYLOCAINE) 2 % injection Given 03/11/2022 12:34 AM CDT 100 mg Starting on Yamilka 03/11/22 at 0033, For 1 dose, Amparo Henson: cabinet override naloxone (NARCAN) injection 0.2 mg 0.2 mg, Intravenous, EVERY 2 MIN PRN, op ioid reversal, Starting on [place]ilka 03/11/22 at 0440, Administer intravenous route when available and notify provider when administered. For unintended sedation or respiratory depression if all of the below criteria are met: ~ respiratory rate LES S than or EQUAL to 8. ~SaO2 less than 92% and or/end-tidal CO2 is greater than 50. ~ the patient is receiving an opioid, has unintended sedations assessed as RASS (-3), and is cur rently not on mechanical ventilation. RASS scale moderate (-3) is movement or eye opening to voice but no eye contact. Patient Monitoring Once the patient has demonstrated a response to the naloxone, continue to monitor respiratory rate, depth, oxygen saturation and end-tidal CO2 (if available) every 15 mi nutes x 2, then every 30 minutes x 2, then every 1 hour x 1 after each naloxone dose. Consider tr ansfer to ICU if patient respiratory parameters have not improved after 4 nalox one doses. naloxone (NARCAN) injection 0.2 mg 0.2 mg, Intramuscular, EVERY 2 MIN PRN, opioid reversal, Starting on Yamilka 03/11/22 at 0440, Administer intramuscular if an int ravenous route is not available and notify provider when administered. For unintend ed sedation or respiratory depression if all of the below criteria are met: ~ respiratory rate LESS than or EQUAL to 8. ~SaO2 less than 92% and or/end-tidal CO2 is greater th an 50. ~ the patient is receiving an opioid, has unintended sedations assessed as RASS (-3), and is currently not on mechanical ventilation. RASS scale moderate (-3) is movement or eye opening to voice but no eye contact. Patient Monitoring Once the patient has demonstrated a response to the naloxone, continue to m onitor respiratory rate, depth, oxygen saturation and end-tidal CO2 (if availab le) every 15 minutes x 2, then every 30 minutes x 2, then every 1 hour x 1 after each naloxone dose. Consider transfer to ICU if patient respiratory parameters have not improved after 4 naloxone doses. naloxone (NARCAN) injection 0.4 mg 0.4 mg, Intravenous, EVERY 2 MIN PRN, op ioid reversal, Starting on [place]ilka 03/11/22 at 0440, Administer intravenous route when available and notify provider when administered. For unintended sedation or respiratory depression if all of the below criteria are met: ~ respiratory rate LES S than or EQUAL to 8. ~ SaO2 less than 92% and or/end-tidal CO2 is greater than 50. ~ the patient is receiving an opioid, has unintended sedation assessed as RASS (-4 ) or (-5) and patient is currently not on mechanical ventilation. RASS scale (-4) is deep sedation with no response to voice but movement or eye opening to physical stimulation. R ASS scale (-5) is unarousable. Patient Monitoring Once the patient has demonstrated a response to the naloxone, continue to monitor respiratory rate, depth, oxygen saturation and end-tidal CO2 (if available) every 15 mi nutes x 2, then every 30 minutes x 2, then every 1 hour x 1 after each naloxone dose. Consider tr ansfer to ICU if patient respiratory parameters have not improved after 4 nalox one doses. naloxone (NARCAN) injection 0.4 mg 0.4 mg, Intramuscular, EVERY 2 MIN PRN, opioid reversal, Starting on Yamilka 03/11/22 at 0440, Administer intramuscular if an int ravenous route is not available and notify provider when administered. For unintend ed sedation or respiratory depression if all of the below criteria are met: ~ res piratory rate LESS than or EQUAL to 8. ~ SaO2 less than 92% and or/end-tidal CO2 is greater merced n 50. ~ the patient is receiving an opioid, has unintended sedation assessed as RASS (-4) or (-5) and patient is currently not on mechanical ventilation. RA SS scale (-4) is deep sedation with no response to voice but movement or eye opening to physical stimulation. RASS scale (-5) is unarousa ble. Patient Monitoring Once the patient has demonstrated a response to the nalox one, continue to monitor respiratory rate, depth, oxygen saturation and end-tidal CO2 (if availab le) every 15 minutes x 2, then every 30 minutes x 2, then every 1 hour x 1 after each naloxone dose. Consider transfer to ICU if patient respiratory parameters have not improved after 4 naloxone doses. ondansetron (ZOFRAN) injection 4 mg Given 03/11/2022 2:59 PM CDT 4 mg 4 mg, Intravenous, EVERY 6 HOURS PRN, nausea, vomiting, Administer over 2-5 Minutes, Starting on Yamilka 03/11/22 at 0221, Give IF patient unable to tolerate oral medication. This is Step 1 of nausea and vomiting management. If nausea not resolved in 15 minutes, go to Step 2 prochlorperazine (COMPAZINE). Irritant. ondansetron (ZOFRAN) injection 4 mg Given 03/11/2022 2:47 AM CDT 4 mg 4 mg, Intravenous, ONCE, Administer over 2-5 Minutes, On Yamilka 03/11/22 at 0245, For 1 dose, Irritant. ondansetron (ZOFRAN-ODT) ODT tab 4 mg 4 mg, Oral, EVERY 6 HOURS PRN, nausea, v omiting, Starting on Yamilka 03/11/22 at 0221, This is Step 1 of nausea and vomiting management. If n ausea not resolved in 15 minutes, go to Step 2 prochlorperazine ( COMPAZINE). With dry hands, peel back foil backing and gently remove tablet. Do not push oral disintegrating tablet through foil backing. Administer immediately on tongue and ora l disintegrating tablet dissolves in seconds, then swallow with saliva. Liquid not required. oxyCODONE IR (ROXICODONE) tablet 10 mg Given 03/11/2022 1:27 PM CDT 10 mg 10 mg, Oral, EVERY 6 HOURS PRN, moderate to severe pain, Starting on Yamilka 03/11/22 at 1322, Pt reports she tolerated medication before. sodium chloride (OCEAN) 0.65 % nasal spray Given 03/11 11:18 AM CDT 1 spray 1 spray 1 spray, Both Nostrils, 4 TIMES DAILY, First dose on Yamilka 03/11/22 at 0800 Given 03/11/2022 8:25 AM CDT 1 spray sodium chloride 0.9% infusion New Bag 03/11/2022 4:37 AM CDT 100 mL/hr at 100 mL/hr, Intravenous, CONTINUOUS, Starting on Yamilka 03/11/22 at 0245, Until Yamilka 03/11/22 at 1951 documented in this encounter Active and Recently Administered Medications Times are shown in CDT. Scheduled Medication Order 03/09/2022 03/10/2022 03/11/2022 cefTRIAXone (ROCEPHIN) 1 g vial to attac h to NS 100 mL bag for ADULTS or NS 50 mL bag for PEDS (COMPLETED) 0243 (New Ba g - Provider: Amparo Henson RN)0320 (Stopped - Provider: Amparo Henson RN) STAT, 1 g, Intravenous, ONCE, On Yamilka 02/13 07/05 at 0230, For 1 dose, Indications: Skin and Soft Tissue Infection docusate sodium (COLACE) capsule 100 mg 0825 (Not Given - Provider: Calli Ordoñez RN - Reason: Patient/family refused) 100 mg, Oral, 2 TIMES DAILY, First dose on Yamilka 03/11/22 at 0800, Hold for loose stools. HYDROmorphone (PF) (DILAUDID) injection 0.5 mg (COMPLETED) 246 (Given - Provider: Amparo Henson RN) 0.5 mg, Intravenous, ONCE, On Yamilka 03/11/22 at 0245, For 1 dose ondansetron (ZOFRAN) injection 4 mg (COMPLETED) 246 (Given - Provider: Amparo Henson RN) 4 mg, Intravenous, ONCE, Administer over 2-5 Minutes, On Yamilka 03/11/22 at 0245, For 1 dose, Irritant. sodium chloride (OCEAN) 0.65 % nasal spray 1 spray 0825 (Given - Provider: Calli Ordoñez RN)1118 (Given - Provider: Calli Ordoñez RN)1600 (Canceled Entry - Provider: Orders Generic Provider - Comment: Automatically canceled at discontinue of medication order) 1 spray, Both Nostrils, 4 TIMES DAILY, First dose on Yamilka 03/11/22 at 0800 Continuous Medication Order 03/09/2022 03/10/2022 03/11/2022 sodium chloride 0.9% infusion 04 37 (New Bag - Provider: Lupis Santos, DAHLIA) at 100 mL/hr, Intravenous, CONTINUOUS, S tarting on Yamilka 03/11/22 at 0245, Until Yamilka 03/11/22 at 1951 PRN Medication Order 03/09/2022 03/10/2022 03/11/2022 acetaminophen (TYLENOL) Suppository 650 mg(Linked Group 1) 0424 (See Alternative - Provider: Lupis Santos RN) 650 mg, Rectal, EVERY 6 HOURS PRN, mild pain, other, and adjunct with moderate or severe pain or per patient request, Starting on Yamilka 03/11/22 at 0221, Alternate with ibuprofen if ordered. Maximum acetam inophen dose from all sources = 75 mg/kg/day not to exceed 4 gra ms/day. acetaminophen (TYLENOL) tablet 650 mg(Linked Group 1) 0424 (Not Given - Provider: Lupis Santos RN - Reason: Patient/family refused) 650 mg, Oral, EVERY 6 HOURS PRN, mild pa in, other, and adjunct with moderate or severe pain or per patient request, Starting on Yamilka 03/11/22 at 0221, Alternate with ibuprofen if ordered. Maximum acetamin ophen dose from all sources = 75 mg/kg/day not to exceed 4 grams /day. HYDROmorphone (PF) (DILAUDID) injection 0.5 mg (CANCELED) 0034 (Given - Provider: Amparo Henson, DAHLIA)0149 (Given - Provider: Amparo Henson RN) 0.5 mg, Intravenous, EVERY 15 MIN PRN, m oderate to severe pain, Starting on Yamilka 03/11/22 at 0025, For 3 doses, Notify the provider to assess for uncontrolled pain or analgesic side effects. 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 HYDROmorphone (PF) (DILAUDID) injection 0.5 mg 0450 (Given - Provider: Lupis Santos, RN)0651 (Given - Provider: Lupis Santos, RN)0856 (Given - Provider: Lynn Love, RN)1118 (Given - Provider: Calli Ordoñez, RN)1311 (Given - Provider: Calli Ordoñez, DAHLIA) 0.5 mg, Intravenous, EVERY 2 HOURS PRN, moderate to severe pain, Starting on Yamilka 03/11/22 at 0438 melatonin tablet 1 mg 1 mg, Oral, AT BEDTIME PRN, sleep, Start ing on Yamilka 03/11/22 at 0221, Do not give unless at least 6 hours of uninterrupted sleep is expected. naloxone (NARCAN) injection 0.2 mg(Linked Group 2) 0.2 mg, Intravenous, EVERY 2 MIN PRN, op ioid reversal, Starting on Yamilka 03/11/22 at 0440, Administer intravenous route when available and notify provider when administered. For unintended sedation or resp iratory depression if all of the below c riteria are met: ~ respiratory rate LESS than or EQUAL to 8. ~SaO2 less than 92% and or/end-tidal CO2 is greater than 50. ~ the patient is receiving an opioid, valentine s unintended sedations assessed as RASS (-3), and is currently not on mechanical ventilation. RASS scale moderate (-3) is movement or eye opening to voice but no eye contact. Patient Monitoring Once the patient has demonstrated a response to the naloxone, continue to monitor respiratory rate, depth, oxygen saturation and end-tidal CO2 (if available) every 15 minutes x 2, then every 30 minutes x 2, the n every 1 hour x 1 after each naloxone d ose. Consider transfer to ICU if patient respiratory parameters have not improved after 4 naloxone doses. naloxone (NARCAN) injection 0.2 mg(Linked Group 2) 0.2 mg, Intramuscular, EVERY 2 MIN PRN, opioid reversal, Starting on Yamilka 03/11/22 at 0440, Administer intramuscular if an intravenous route is not available and notify provider when administered. For uni ntended sedation or respiratory depressi on if all of the below criteria are met: ~ respiratory rate LESS than or EQUAL to 8. ~SaO2 less than 92% and or/end- tidal CO2 is greater than 50. ~ the patient is receiving an opioid, has unintended sed ations assessed as RASS (-3), and is currently not on mechanical ventilation. RASS scale moderate (-3) is movement or eye opening to voice but no eye contact. Pat ient Monitoring Once the patient has dem onstrated a response to the naloxone, continue to monitor respiratory rate, depth, oxygen saturation and end-tidal CO2 (if available) every 15 minutes x 2, then e very 30 minutes x 2, then every 1 hour x 1 after each naloxone dose. Consider transfer to ICU if patient respiratory parameters have not improved after 4 naloxone doses. naloxone (NARCAN) injection 0.4 mg(Linked Group 2) 0.4 mg, Intravenous, EVERY 2 MIN PRN, op ioid reversal, Starting on Yamilka 03/11/22 at 0440, Administer intravenous route when available and notify provider when administered. For unintended sedation or resp iratory depression if all of the below c riteria are met: ~ respiratory rate LESS than or EQUAL to 8. ~ SaO2 less than 92% and or/end-tidal CO2 is greater than 50. ~ the patient is receiving an opioid, h as unintended sedation assessed as RASS (-4) or (-5) and patient is currently not on mechanical ventilation. RASS scale (-4) is deep sedation with no response to voice but movement or eye opening to phy sical stimulation. RASS scale (-5) is un arousable. Patient Monitoring Once the patient has demonstrated a response to the naloxone, continue to monitor respiratory rate, depth, oxygen saturation and end -tidal CO2 (if available) every 15 minut es x 2, then every 30 minutes x 2, then every 1 hour x 1 after each naloxone dose. Consider transfer to ICU if patient respiratory parameters have not improved after 4 naloxone doses. naloxone (NARCAN) injection 0.4 mg(Linked Group 2) 0.4 mg, Intramuscular, EVERY 2 MIN PRN, opioid reversal, Starting on Yamilka 03/11/22 at 0440, Administer intramuscular if an intravenous route is not available and notify provider when administered. For uni ntended sedation or respiratory depressi on if all of the below criteria are met: ~ respiratory rate LESS than or EQUAL to 8. ~ SaO2 less than 92% and or/end- tidal CO2 is greater than 50. ~ the patient i s receiving an opioid, has unintended se dation assessed as RASS (-4) or (-5) and patient is currently not on mechanical ventilation. RASS scale (-4) is deep sedation with no response to voice but moveme nt or eye opening to physical stimulatio n. RASS scale (-5) is unarousable. Patient Monitoring Once the patient has demonstrated a response to the naloxone, continue to monitor respiratory rate, depth, o xygen saturation and end-tidal CO2 (if a vailable) every 15 minutes x 2, then every 30 minutes x 2, then every 1 hour x 1 after each naloxone dose. Consider transfer to ICU if patient respiratory parameters have not improved after 4 naloxone doses. ondansetron (ZOFRAN) injection 4 mg(Linked Group 3) 9896 (Given - Provider: Calli Ordoñez RN) 4 mg, Intravenous, EVERY 6 HOURS PRN, na usea, vomiting, Administer over 2-5 Minutes, Starting on Yam[place]ka 03/11/22 at 0221, Give IF patient unable to tolerate oral medication. This is Step 1 of nausea and vom iting management. If nausea not resolved in 15 minutes, go to Step 2 prochlorperazine (COMPAZINE). Irritant. ondansetron (ZOFRAN-ODT) ODT tab 4 mg(Linked Group 3) 0863 (See Alternative - Provider: Calli Ordoñez RN) 4 mg, Oral, EVERY 6 HOURS PRN, nausea, v omiting, Starting on Yamilka 03/11/22 at 0221, This is Step 1 of nausea and vomiting management. If nausea not resolved in 15 minutes, go to Step 2 prochlorperazine (C OMPAZINE). With dry hands, peel back foi l backing and gently remove tablet. Do not push oral disintegrating tablet through foil backing. Administer immediately on tongue and oral disintegrating tablet d issolves in seconds, then swallow with saliva. Liquid not requir ed. oxyCODONE IR (ROXICODONE) tablet 10 mg 4867 (Given - Provider: Calli Ordoñez RN) 10 mg, Oral, EVERY 6 HOURS PRN, moderate to severe pain, Starting on Yamilka 03/11/22 at 1322, Pt reports she tolerated medication before. No Frequency Medication Order 03/09/2022 03/10/2022 03/11/2022 lidocaine (PF) (XYLOCAINE) 2 % injection (COMPLETED) 0034 (Given - Provider: Amparo Henson RN - Comment: given by ENT MD) Starting on Yamilka 03/11/22 at 0033, For 1 d oseSixto Katrina: cabinet override Linked Groups Order Group 1: acetaminophen (TYLENOL) tablet 650 mgJump to med 650 mg, Oral, EVERY 6 HOURS PRN, mild pa in, other, and adjunct with moderate or severe pain or per patient request, Starting on Yamilka 03/11/22 at 0221
Alternate with ibuprofen if ordered.&nbsp ;Maximum acetaminophen dose from all rahel rces = 75 mg/kg/day not to exceed 4 grams/day.
Or acetaminophen (TYLENOL) Suppository 650 mgJump to med 650 mg, Rectal, EVERY 6 HOURS PRN, mild pain, other, and adjunct with moderate or severe pain or per patient request, Starting on Yamilka 03/11/22 at 0221
Alternate with ibuprofen if ordered.&nb sp;Maximum acetaminophen dose from all s ources = 75 mg/kg/day not to exceed 4 grams/day.
Group 2: naloxone (NARCAN) injection 0.2 mgJump to med 0.2 mg, Intravenous, EVERY 2 MIN PRN, op ioid reversal, Starting on Yamilka 03/11/22 at 0440
Administer intravenous route when available and notify provider when administered. For unintended sedation or respiratory depression if a ll of the below criteria are met: ~ respiratory rate LESS than or EQUAL to 8. ~SaO2 less than 92% and or/end- tidal CO2 is greater than 50.& nbsp;~ the patient is receiving an opioi d, has unintended sedations assessed as RASS (-3), and is currently not on mechanical ventilation. RASS scale moderate (-3) is movement or eye opening to voice but no eye contact.&nbs p; Patient Monitoring Once the patient has demonstrated a response to the naloxone, continue to monitor respiratory rate, depth, oxygen satu ration and end-tidal CO2 (if available) every 15 minutes x 2, then every 30 minutes x 2, then every 1 hour x 1 after each naloxone dose. Consider transfer to ICU if patient respirator y parameters have not improved after 4 n aloxone doses.
Or naloxone (NARCAN) injection 0.4 mgJump to med 0.4 mg, Intravenous, EVERY 2 MIN PRN, op ioid reversal, Starting on Yamilka 03/11/22 at 0440
Administer intravenous route when available and notify provider when administered. For unintended sedation or respiratory depression if a ll of the below criteria are met: ~ respiratory rate LESS than or EQUAL to 8. ~ SaO2 less than 92% and or/end- tidal CO2 is greater than 50.& nbsp;~ the patient is receiving an opioi d, has unintended sedation assessed as RASS (-4) or (-5) and patient is currently not on mechanical ventilation. RASS scale (-4) is deep sedati on with no response to voice but movemen t or eye opening to physical stimulation. RASS scale (-5) is unarousable. Patient Monitoring On ce the patient has demonstrated a respon se to the naloxone, continue to monitor respiratory rate, depth, oxygen saturation and end-tidal CO2 (if available) every 15 minutes x 2, then every 30 minutes x 2, then every 1 hour x 1 after each nalo xone dose. Consider transfer to ICU if patient respiratory parameters have not improved after 4 naloxone doses.
Or naloxone (NARCAN) injection 0.2 mgJump to med 0.2 mg, Intramuscular, EVERY 2 MIN PRN, opioid reversal, Starting on Yamilka 03/11/22 at 0440
Administer intramuscular if an intravenous route is not available and notify provider when administered. For unintended sedation or respira tory depression if all of the below criteria are met: ~ respiratory rate LESS than or EQUAL to 8. ~SaO2 less than 92% and or/end-tidal CO2 is greater than 50. ~ the patient i s receiving an opioid, has unintended sedations assessed as RASS (-3), and is currently not on mechanical ventilation. RASS scale moderate (-3) is movement or eye opening to voice but no eye contact. Patient Monitoring Once the patient has demonstrated a response to the naloxone, continue to monitor respiratory rate, depth, oxygen saturation and end-t idal CO2 (if available) every 15 minutes x 2, then every 30 minutes x 2, then every 1 hour x 1 after each naloxone dose. Consider transfer to [facility] if patient respiratory parameters hav e not improved after 4 naloxone doses.
Or naloxone (NARCAN) injection 0.4 mgJump to med 0.4 mg, Intramuscular, EVERY 2 MIN PRN, opioid reversal, Starting on Yamilka 03/11/22 at 0440
Administer intramuscular if an intravenous route is not available and notify provider when administered. For unintended sedation or respira tory depression if all of the below criteria are met: ~ respiratory rate LESS than or EQUAL to 8. ~ SaO2 less than 92% and or/end-tidal CO2 is greater than 50. ~ the patient i s receiving an opioid, has unintended sedation assessed as RASS (-4) or (-5) and patient is currently not on mechanical ventilation. RASS s griselda (-4) is deep sedation with no respo nse to voice but movement or eye opening to physical stimulation. RASS scale (-5) is unarousable. Patien t Monitoring Once the patient has d emonstrated a response to the naloxone, continue to monitor respiratory rate, depth, oxygen saturation and end-tidal CO2 (if available) every 15 minutes x 2, then every 30 minutes x 2, then every 1 hour x 1 after each naloxone dose. Consider transfer to ICU if patient respiratory parameters have not improved after 4 naloxone doses.
Group 3: ondansetron (ZOFRAN-ODT) ODT tab 4 mgJump to med 4 mg, Oral, EVERY 6 HOURS PRN, nausea, v omiting, Starting on Yamilka 03/11/22 at 0221
This is Step 1 of nausea and vomiting management. If nausea not resolved in 15 minutes, go to Step 2 prochlorperazine (COMPAZINE).&nb sp;With dry hands, peel back foil backing and gently remove tablet. Do not push oral disintegrating tablet through foil backing. Administer immediately on ton ignacio and oral disintegrating tablet disso lves in seconds, then swallow with saliva. Liquid not required.
Or ondansetron (ZOFRAN) injection 4 mgJump to med 4 mg, Intravenous, EVERY 6 HOURS PRN, na usea, vomiting, Administer over 2-5 Minutes, Starting on Yamilka 03/11/22 at 0221
Give IF patient unable to tolerate oral medication. This is Step 1 of nausea and vomiting management. If na usea not resolved in 15 minutes, go to Step 2 prochlorperazine (COMPAZINE). Irritant.
documented in this encounter Care Teams Medical Receptionist Relationship Specialty Start Date End Date [facility] And PCP - General 03/10/22 [facility] [address] [place] [id number] documented as of this encounter
--- OUTSIDE RECORDS SUMMARY | 2022-08-13 01:26 | XMS_ITS | Encounter Summary ---
:1995 Author Organization [place] Address [facility] [place] [address] Care Team Providers Name Role Phone [facility]- Reason for Visit Reason Comments Epistaxis Encounter Details Date Type Department Care Team Description 03/10/2022 [facility] Damir Aquino MD Epistaxis Emergency Dept [facility] [address] [facility] [address] [place] [phone] [facility][note 3] [phone] [place] [address] (Wo rk) Social History Tobacco Use Types Packs/Day Years [...] Sign Reading Time Taken Comments Blood Pressure 137/91 03/10/2022 10:30 PM CDT Pulse 63 03/10/2022 10:30 PM CDT Temperature - - Respiratory Rate 16 03/10/2022 6:15 PM CDT Oxygen Saturation 97% 03/10/2022 10:30 PM CDT Inhaled Oxygen Concentration - - Weight - - Height - - Body Mass Index - - documented in this encounter Discharge Instructions Discharge InstructionsDamir Aquino MD - 03/10/2022 8:55 PM CDT Please follow-up with your ENT doctor in the next 1 to 2 days for reassessment. Begin the antibiotic as discussed for prevention of infection while the nasal packing is in place. Please use Tylenol as needed for pain and oxycodone for breakthrough pain. No driving or operating heavy machinery while taking this. Discharge Instructions Epistaxis Today you were seen for a nosebleed. Nosebleeds (the medical term is epistaxis) are very common. Almost every person has had at least one in their lifetime. Although the amount of blood loss can appear dramatic, nosebleeds rarely cause serious problems. The most common causes are dry air or nose pick ing, but they also are common in people who have allergies, high blood pressure, or are on blood thinners (such as Coumadin, Aspirin or Plavix). If you or your child gets a nosebleed, the important thing is to know how to take care of it. With the right self-care, most nosebleeds will stop on their own. Generally, every Emergency Department visit should have a follow-up clinic visit with either a primary or a specialty clinic/provider. Please follow-up as instructed by your emergency provider today. Return to the Emergency Department if: Your nose is bleeding a very large amount of blood and you are unable to stop it. You get very pale, faint, or tired. You cannot get the bleeding to stop after following these instructions. Treatment: Your provider may tell you to use a decongestant nose spray, like Afrin?? (oxymetazoline), in both nostrils in the morning and at night for the next three days. Do not use this medicine for more than three days at a time. If you do, it will cause nasal congestion. Use a moisturizer. A small amount of Vaseline?? to the inside of your nostrils for moisture before bed is one option. There are nasal sprays available [id number] for this purpose as well. Using ahumidifier in your bedroom or home will help as well when the air is dry. For the next three days, do not blow your nose or put anything in your nose. You may sniffle, or dabthe outside of your nose. Do not bend with your head below your waist for the next three days. Do not lift anything so heavy that you have to strain. If you received nasal packing, please do not remove the packing until seen by an Ear, Nose, and Throat (ENT) specialist. If antibiotics have been given with the packing, please take as directed. If your nose starts to bleed again: Blow your nose to get rid of some of the clots that have formed inside your nostrils. This may increase the bleeding temporarily, but that is okay. Lincoln decongestant nose spray (like Afrin??) into both nostrils to constrict the blood vessels. Sit or stand while bending forward slightly at the waist. Do not lie down or tilt your head back. This may cause you to swallow blood and can lead to vomiting. Needle Polisher the soft part of BOTH nostrils at the bottom of your nose and squeeze your nose closed for at least 5 minutes (for children) or 10 to 15 minutes (for adults). Use a clock to time yourself. Do not release the pressure every so often to check whether the bleeding has stopped. Many people hurt theirchances of stopping the bleeding by releasing the pressure too soon or too often. If you follow the steps outlined above, and your nose continues to bleed, repeat all the steps once more. Apply pressure for a total of at least 30 minutes. If you continue to bleed even then, seek medical attention. If you were given a prescription for medicine here today, be sure to read all of the information (including the package insert) that comes with your prescription. This will include important information about the medicine, its side effects, and any warnings that you need to know about. The pharmacist who fills the prescription can provide more information and answer questions you may have about the medicine. If you have questions or concerns that the pharmacist cannot address, please call or return to the Emergency Department. Remember that you can always come back to the Emergency Department if you are not able to see your regular provider in the amount of time listed above, if you get any new symptoms, or if there is anything that worries you. documented in this encounter Medications at Time [...] 2021 100 MG tablet daily sodium chloride Lincoln 1 spray into 0 03/11/2022 (OCEAN) 0.65 [...] documented as of this encounter Progress Notes Damir Allison MD - 03/10/2022 8:04 PM CDT ENT E.D. Consult Requesting MD: Dr. Aquino CC: Epistaxis HPI: 26-year-old female with severe epistaxis which cannot be controlled with nasal packing in the emergency department. I was called to assist with controlling this nosebleed. The patient had bilateral inferior turbinate cautery performed by Dr. Abernathy in [place] recently. The patient had nasal packs removed from her nose in his clinic recently and then today had severe bleeding from the leftnasal cavity which she could not control at home. She does not take any blood thinners. No nasal trauma. No general bleeding tendencies. No past medical history on file. Current Facility-Administered Medications Medication ??? lidocaine 1% with EPINEPHrine 1:100,000 1 %-1:[id number] injection ??? lidocaine 1% with EPINEPHrine 1:100,000 injection 10 mL ??? oxyCODONE (ROXICODONE) tablet 5 mg ??? silver nitrate (ARZOL) [facility] 1 applicator No current outpatient medications on file. No Known Allergies Social History Socioeconomic History ??? Marital status: Not on file Spouse name: Not on file ??? Number [...] on file Housing Stability: Not on file ROS: as above PHYSICAL EXAMINATION BP 132/87 Pulse 67 Resp 16 LMP 03/10/2022 SpO2 96% General appearance: Well developed, well nourished and groomed. No apparent acute or chronic distress. Ability to communicate: normal. No hoarseness or stridor HEAD, FACE, SALIVARY GLANDS AND TMJ: Inspection of Head and Face: Normal contour and symmetry. No masses, lesions, or significant scars observed. Palpation/Percussion of the Face: No tenderness, deformity or instability. Palpation of Parotid and Submaxillary glands: Normal. Facial Mobility: Normal. EYES: Ocular Motility: gaze appears conjugate in all positions; no evident nystagmus. EAR, NOSE, MOUTH AND THROAT: Pinnas and External Nose: Normal. Hearing: Conversational speech rarely or never misunderstands words. Nasal Interior: Septum - Midline, no obvious anterior bleeding from septum. Turbinates and middle meatus - blood fills nose Rhinorrhea - epistaxis. Vestibular skin - Normal bilaterally. Mucosa - blood. Lips, Teeth and Gums: Normal. Adequate salivary pool, filled with blood Oral Cavity and Oropharynx: copious blood flowing from nasopharynx to post pharyngeal wall NECK AND THYROID: Neck: normal symmetry; trachea midline; normal laryngeal crepitation; no adenopathy; no neck masses;no skin lesions; no scars. Thyroid: normal size; no masses or tenderness. RESPIRATORY: Chest Wall expands normally and no deformities noted. Respiratory Effort normal. CARDIOVASCULAR: Symmetric carotid pulses regular rate. Peripheral Vascular System: normal pulses with no peripheral vascular swelling or varicosities, tenderness or edema. Skin warm and dry. LYMPH NODES: Neck Nodes: normal, no adenopathy. NEUROLOGIC: Level of orientation: normal to time, place, person and situation. Cranial nerves: Cranial nerves II-XII grossly intact and symmetrical. PSYCHIATRIC: Level of consciousness: awake and alert. Judgment and insight: normal. Mood and affect: normal and appropriate to the situation. - anxious Procedure note: Endoscopic control of epistaxis After discussion of the risks and benefits verbal consent was provided for control of epistaxis.: There is copious clots and blood in the left nasal cavity which obscures visualization. I attempted tosuction the clots and blood but there was [...] blood obscuring the view. I injected the nosewith a solution of 1% lidocaine with epinephrine 1-1000 at the lateral nasal wall near the middle tur binate as well as the septum. This did help with control of the bleeding as well as anesthesia. I again tried to clean out clots and still did not see a obvious major source of bleeding. Surgicel was packed into the roof of the nasal cavity cavity along the septum and this seemed to stop the bleeding.I then placed 2 balloon posterior inflatable pack into the nose and secured it to the cheek with a piece of tape. There was good control of bleeding upon completion. The headlight and the flexible scope was used for visualization at various times during treatment. IMP: epistaxis - severe, surgical complication, now controlled with treatment RECC: Avoid strenuous activity, avoid bending, leave the nasal pack in place for 5 days. She was instructed to follow-up with her surgeon in [place] in 5 days for pack removal which will be this Tuesday. Suggest coverage with cephalexin 500 mg 3 times daily for the next 5 days. Return to emergency department if any severe nasal bleeding which cannot be controlled at home. Suggest going to hospital where procedure was performed so she has better continuity of care. Damir Allison M.D. documented in this encounter ED Notes Jet Joya DAHLIA - 03/10/2022 10:26 PM CDT [facility] ED Nurse Handoff Report Bridgett Kyle is a 26 year old female ED Chief complaint: Epistaxis . ED Diagnosis: Final diagnoses: Epistaxis Allergies: No Known Allergies Code Status: Full Code Activity level - Baseline/Home: Independent. Activity Level - Current: Independent. Lift room needed: No. 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 Infection: Not Applicable. Vital Signs: Vitals: 03/10/22 2130 03/10/22 2145 03/10/22 2200 03/10/22 2215 BP: (!) 128/94 (!) 128/102 (!) 123/94 (!) 141/91 Pulse: 63 86 57 57 Resp: SpO2: 96% 96% 97% Cardiac Rhythm: , Pain level: Patient confused: No. Patient Falls Risk: No. Elimination Status: Has voided Patient Report - Initial Complaint: Triage Assessment Row Name 03/10/221818 Triage Assessment (Adult) Airway WDL WDL Cardiac WDL Cardiac WDL WDL Had turbinate cautery on Tuesday. Nose started bleeding just APPLICATIONS SUPPORT ANALYST. Large clot noted at nasal passage. Blood dripping down back of throat. . Focused Assessment: A&OX4. Pleasant and cooperative. Maintaining airway Tests Performed: Labs Ordered and Resulted from Time of ED Arrival to Time of ED Departure HCG QUALITATIVE - Normal Result Value hCG Serum Qualitative Negative CBC WITH PLATELETS AND DIFFERENTIAL WBC Count 7.0 RBC Count 4.62 Hemoglobin 13.9 Hematocrit 42.7 MCV 92 MCH 30.1 MCHC 32.6 RDW 12.5 Platelet Count 217 % Neutrophils 51 % Lymphocytes 40 % Monocytes 5 % Eosinophils 4 % Basophils 0 % Immature Granulocytes 0 NRBCs per 100 WBC 0 Absolute Neutrophils 3.5 Absolute Lymphocytes 2.8 Absolute Monocytes 0.4 Absolute Eosinophils 0.3 Absolute Basophils 0.0 Absolute Immature Granulocytes 0.0 Absolute NRBCs 0.0 . Abnormal Results: see results. Treatments provided: see MAR Family Comments: bedside OBS brochure/video discussed/provided to patient: No ED Medications: Medications tranexamic acid (CYKLOKAPRON) TOPICAL (injection used topically) ( Topical Given 03/10/221835) LORazepam (ATIVAN) injection 0.5 mg (0.5 mg Intravenous Given 03/10/221834) 0.9% sodium chloride BOLUS (0 mLs Intravenous Stopped 03/10/222008) silver nitrate (ARZOL) Misc 1 applicator (2 applicators Topical Given 03/10/222007) lidocaine 1% with EPINEPHrine 1:100,000 injection 10 mL (10 mLs Intradermal Given 03/10/222008) oxyCODONE (ROXICODONE) tablet 5 mg (5 mg Oral Given 03/10/222008) HYDROmorphone (PF) (DILAUDID) injection 0.5 mg (0.5 mg Intravenous Given 03/10/222055) HYDROmorphone (PF) (DILAUDID) injection 0.5 mg (0.5 mg Intravenous Given 03/10/222151) ondansetron (ZOFRAN) injection 4 mg (4 mg Intravenous Given 03/10/222151) Drips infusing: No For the majority of the shift, the patient's behavior Green. Interventions performed were NA. Sepsis treatment initiated: No Patient tested for COVID 19 prior to admission: NO ED Nurse Name/Phone Number: Jet Joya RN, 10:26 PM HT Jet Joya RN - 03/10/2022 9:59 PM CDT States pain continues to be 10/10 Jet Crum RN - 03/10/2022 9:32 PM CDT Patient placed call-light on, nose re-bleeding. Tearful and upset. States pain continues to be high.Also reporting pain with IV, flushes well, no redness or warmth noted at site. Jet Crum RN - 03/10/2022 6:42 PM CDT Nose bleeding, despite rhino-rocket in place. Actively dripping around packing. Patient A&OX4. Maintaining airway. TXA applied by MD, with no success. Spitting up clots and blood. Line and lab. IVP medication given due to anxiety. Magali Cardozo RN - 03/10/2022 6:19 PM CDT Triage Assessment Row Name 03/10/22 1819 Triage Assessment (Adult) Airway WDL WDL Cardiac WDL Cardiac WDL WDL Parisa Mejia RN - 03/10/2022 6:09 PM CDT Had turbinate cautery on Tuesday. Nose started bleeding just APPLICATIONS SUPPORT ANALYST. Large clot noted at nasal passage. Blood dripping down back of throat. Damir Aquino MD - 03/10/2022 6:05 PM CDT History Chief Complaint: Epistaxis HPI Bridgett Kyle is a 26 year old female who had a bilateral turbinate cautery on 03/[address] Abernathy through [facility] who presents with epistaxis. Per the patient, about half an hour ago she developed left-sided epistaxis while washing her face. She notes blood is dripping down the back of her throat. She denies nausea and vomiting. Not on anticoagulation. Denies any recent facial trauma. Review of Systems HENT: Positive for nosebleeds. Gastrointestinal: Negative for nausea and vomiting. Allergies: The patient has no known allergies. Medications: The patient is not currently taking any prescribed medications. Past Medical History: Deviated septum Past Surgical History: Turbinate cautery Social History: The patient was accompanied by a family member Physical Exam Patient Vitals for the past 24 hrs: BP Pulse Resp SpO2 03/10/22 2045 134/83 69 -- 96 % 03/10/222029 127/85 70 -- -- 03/10/222014 128/77 78 -- -- 03/10/221999 132/87 67 -- 96 % 03/10/221944 129/77 81 -- 99 % 03/10/221929 125/84 82 -- -- 03/10/221914 121/81 77 -- 98 % 03/10/22 190 124/81 71 -- 96 % 03/10/221849 129/87 -- -- 97 % 03/10/221814 132/87 83 16 94 % Physical Exam General: Well-nourished Speaking in full sentences Eyes: Conjunctiva without injection or scleral icterus PERRL EOM full w/out entrapment or proptosis ENT: Moist mucous membranes No tonsillar hypertrophy, exudate, asymmetry, nor uvular deviation No oral lesions Significant clot hanging from anterior left nare When cleared, ongoing bleeding coming from left nare without culprit vessel visualized Blood noted to posterior oropharynx Pinnae normal No midface swelling, erythema, or asymmetry Neck: Full ROM No stiffness appreciated Resp: Lungs CTAB No crackles, wheezing or audible rubs Good air movement CV: Normal rate, regular rhythm S1 and S2 present No murmur, gallop or rub Skin: Warm, dry, well perfused No rashes or open wounds on exposed skin MSK: Moves all extremities No focal deformities or swelling Neuro: Alert Answers questions appropriately Moves all extremities equally Gait stable Psych: Normal affect, normal mood Emergency Department Course Laboratory: Labs Ordered and Resulted from Time of ED Arrival to Time of ED Departure HCG QUALITATIVE - Normal Result Value hCG Serum Qualitative Negative CBC WITH PLATELETS AND DIFFERENTIAL WBC Count 7.0 RBC Count 4.62 Hemoglobin 13.9 Hematocrit 42.7 MCV 92 MCH 30.1 MCHC 32.6 RDW 12.5 Platelet Count 217 % Neutrophils 51 % Lymphocytes 40 % Monocytes 5 % Eosinophils 4 % Basophils 0 % Immature Granulocytes 0 NRBCs per 100 WBC 0 Absolute Neutrophils 3.5 Absolute Lymphocytes 2.8 Absolute Monocytes 0.4 Absolute Eosinophils 0.3 Absolute Basophils 0.0 Absolute Immature Granulocytes 0.0 Absolute NRBCs 0.0 Emergency Department Course: Reviewed: I reviewed nursing notes and vitals. Assessments: 1818 I obtained history and examined the patient as noted above. 1855 I rechecked the patient and explained findings. 2050 Patient rechecked and updated. 2125 Patient rechecked and updated. 2216 Patient rechecked and updated. Bleeding has improved. Consults: [address] Allison of the ENT service from [facility] regarding patient's presentation, findings, and plan of care. [address] Allison again regarding the patient's status, who has had continued bleeding despite interventions here. [address] Flores of the neuro IR service from [facility] regarding patient's presentation, findings, and plan of care. [address] Mahoney of the emergency medicine service from the [facility] regarding patient's presentation, findings, and plan of care. Interventions: 1834: Ativan, 0.5 mg, IV 1835: Cyklokapron, Topical 1905: Normal Saline, 1 liter, IV bolus 2007: Arzol, 2 Applicators, Topical 2008: Lidocaine 1% with epi, 10 mL, Intradermal 2008: Oxycodone, 5 mg, Oral 2055: Dilaudid, 0.5 mg, IV Disposition: The patient was transferred to the [facility] emergency room via EMS. Impression & Plan Medical Decision Making: Bridgett Kyle is a 26 year old female presenting to the ED for evaluation of epistaxis. VS on presentation reveal elevated BP, though otherwise are unremarkable. Exam demonstrates significant bleedingcoming from the left nare. Initial attempt to control bleeding included clearing of the nose, application of topical TXA (Afrin allergy), and subsequent 7.5 cm anterior/posterior Rhino Rocket. This resulted in transient control of epistaxis, though she did subsequently developed brisk bleeding. I subsequently discussed the case with Dr. Allison of ENT, who graciously presented to bedside, and performed additional packing and cauterization of the patient's left nare. This resulted in transient control of the bleeding, though unfortunately, bleeding did recur. In discussion with ENT, they did recommend consultation with neuro IR for consideration of embolization. I discussed the case with Dr. Flores as outlined above, who felt the patient would benefit from transfer. Given limited bed availability at [facility], patient will be transferred to the ER at the [facility] for ENT and neuro IR consultation. Her hemoglobin has returned normal. Vital signs have remained stable. She has not progressed to respiratory compromise requiring airway intervention during her entire ED course under my care. She will be transferred via EMS for further definitive management of her epistaxis. She is stable at this time, though at risk for deterioration. Patient and significant other were updated multiple times. They are in agreement with the outlined plan of care. Diagnosis: ICD-10-CM 1. Epistaxis R04.0 Scribe Disclosure: I, Paco Lovelace, am serving as a scribe at 6:15 PM on 03/10/2022 to document services personally performed by Damir Aquino MD based on my observations and the provider's statements to me. Damir Aquino MD 03/10/22 2342 documented in this encounter Plan of Treatment Not on filedocumented as of this encounter Procedures Procedure Name Priority Date/Time Associated Comments Diagnosis HCG QUALITATIVE STAT 03/10/2022 7:04 PM Result s for this CDT procedure are i n the results section. CBC WITH PLATELETS STAT 03/10/2022 6:37 PM Res ults for this AND DIFFERENTIAL CDT procedure a re in the results section. CBC WITH PLATELETS & STAT 03/10/2022 6:37 PM R esults for this DIFFERENTIAL CDT procedure are i n the results section. documented in this encounter Results HCG QUALitative (blood) (03/10/2022 7:04 PM CDT) [facility] Method Time Signature hCG Serum Negative Negative CARMEN 03/10/2022 [facility] Qualitative 7:58 PM CDT Comment: This test is for screening purp oses. Results should be interpreted along with the clinical picture. Confirmation testing is available if warranted by ordering [id number], HCG Quantitative . Specimen Anatomical Collection Method / Collection Time Recei radha Time (Source) Location / Volume Laterality Blood BLOOD SPECIMEN / Venipuncture / 03/10/2022 7:04 2021 7:14 Unknown Unknown PM CDT PM CDT Damir Aquino MD LAB - BLOOD ORDERABLES Performing Organization Address City/State/ZIP Code Phon [place] [address] Care [facility] [address] Lab (1st floor, no room number) CBC with platelets and differential (03/10/2022 6:37 PM CDT) Analysis Performed At [facility] Time Signature WBC Count 7.0 4.0 - 11.0 03/10/2022 [facility] 10e3/uL 7:21 PM CDT RBC Count 4.62 3.80 - 03/10/2022 [facility] 5.20 7:21 PM CDT 10e6/uL Hemoglobin 13.9 11.7 - 03/10/2022 [facility] 15.7 g/dL 7:21 PM CDT Hematocrit 42.7 35.0 - 03/10/2022 [facility] 47.0 % 7:21 PM CDT MCV 92 78 - 100 03/10/2022 [facility] fL 7:21 PM CDT MCH 30.1 26.5 - 03/10/2022 [facility] 33.0 pg 7:21 PM CDT MCHC 32.6 31.5 - 03/10/2022 [facility] 36.5 g/dL 7:21 PM CDT RDW 12.5 10.0 - 03/10/2022 [facility] 15.0 % 7:21 PM CDT Platelet Count 217 150 - 450 03/10/2022 [facility] 10e3/uL 7:21 PM CDT % Neutrophils 51 % 03/10/2022 [facility] 7:21 PM CDT % Lymphocytes 40 % 03/10/2022 [facility] 7:21 PM CDT % Monocytes 5 % 03/10/2022 [facility] 7:21 PM CDT % Eosinophils 4 % 03/10/2022 [facility] 7:21 PM CDT % Basophils 0 % 03/10/2022 [facility] 7:21 PM CDT % Immature 0 % 03/10/2022 [facility] Granulocytes 7:21 PM CDT NRBCs per 100 WBC 0 <1 /100 03/10/2022 [facility] RY 7:21 PM CDT Absolute 3.5 1.6 - 8.3 03/10/2022 [facility] Neutrophils 10e3/uL 7:21 PM CDT Absolute 2.8 0.8 - 5.3 03/10/2022 [facility] Lymphocytes 10e3/uL 7:21 PM CDT Absolute 0.4 0.0 - 1.3 03/10/2022 [facility] Monocytes 10e3/uL 7:21 PM CDT Absolute 0.3 0.0 - 0.7 03/10/2022 [facility] Eosinophils 10e3/uL 7:21 PM CDT Absolute 0.0 0.0 - 0.2 03/10/2022 [facility] Basophils 10e3/uL 7:21 PM CDT Absolute Immature 0.0 <=0.4 03/10/2022 [facility] RY Granulocytes 10e3/uL 7:21 PM CDT Absolute NRBCs 0.0 10e3/uL 03/10/2022 [facility] 7:21 PM CDT Specimen Anatomical Collection Method / Collection Time Recei radha Time (Source) Location / Volume Laterality Blood BLOOD SPECIMEN / Venipuncture / 03/10/2022 6:37 2021 7:20 Unknown Unknown PM CDT PM CDT Damir Aquino MD LAB - BLOOD ORDERABLES Performing Organization Address City/State/ZIP Code Phon [place] [address] Care [facility] [address] Lab (1st floor, no room number) documented in this encounter Visit Diagnoses Diagnosis Epistaxis documented in this encounter Administered Medications Inactive Administered Medications - up to 3 most recent administrations Medication Order MAR Action Action Date Dose Rate Site 0.9% sodium chloride BOLUS New Bag 03/10/2022 7:06 PM CDT 500 mLs 500 mL/hr Intravenous, 500 mL, ONCE, at 500 mL/hr, Administer over 1 Hours, On Tue03/10/22 at 1910, For 1 dose HYDROmorphone (PF) (DILAUDID) injection 0.5 Given 03/10/2022 8:56 PM CDT 0.5 mg mg 0.5 mg, Intravenous, ONCE, On Tue03/10/22 at 2054, For 1 dose HYDROmorphone (PF) (DILAUDID) injection 0.5 Given 03/10/2022 9:52 PM CDT 0.5 mg mg 0.5 mg, Intravenous, ONCE, On Tue03/10/22 at 215, For 1 dose lidocaine 1% with EPINEPHrine 1:100,000 1 %-1:[id number] injection Starting on Tue03/10/22 at 1929, For 1 dose, Sheryl Joya cktoria: cabinet override lidocaine 1% with EPINEPHrine 1:100,000 Given 03/10/2022 8:09 PM CDT 10 mLs injection 10 mL 10 mL, Intradermal, ONCE, On Tue03/10/22 at 1935, For 1 dose LORazepam (ATIVAN) injection 0.5 mg Given 03/10/2022 6:35 PM CDT 0.5 mg 0.5 mg, Intravenous, ONCE, On Tue03/10/22 at 1835, For 1 dose, This drug may cause significant respiratory depression. Monitor respiratory status and vital signs carefully for 1 hour after each dose. ondansetron (ZOFRAN) injection 4 mg Given 03/10/2022 9:52 PM CDT 4 mg 4 mg, Intravenous, ONCE, Administer over 2-5 Minutes, On Tue03/10/22 at 2155, For 1 dose, Irritant. oxyCODONE (ROXICODONE) tablet 5 mg Given 03/10/2022 8:09 PM CDT 5 mg 5 mg, Oral, ONCE, On Tue03/10/22 at 2005, For 1 dose silver nitrate (ARZOL) Misc 1 Given 03/10/2022 8:08 PM CDT 2 neri licators applicator Topical, ONCE, On Tue03/10/22 at 1920, For 1 dose, Apply to nose tranexamic acid (CYKLOKAPRON) TOPICAL (injection Given 6:36 PM CDT used topically) Topical, ONCE, On Tue03/10/22 at 1830, For 1 dose, Withdraw solution from vial or ampule and apply topically using gauze. EXTERNAL USE. documented in this encounter Active and Recently Administered Medications Times are shown in CDT. Scheduled Medication Order 03/08/2022 03/09/2022 03/10/2022 0.9% sodium chloride BOLUS (COMPLETED) 1905 (New Bag - Provider: Jet Joya, DAHLIA)2008 (Stopped - Provider: Jet Joya, DAHLIA) Intravenous, 500 mL, ONCE, at 500 mL/hr, Administer over 1 Hours, On Tue03/10/22 at 1910, For 1 dose HYDROmorphone (PF) (DILAUDID) injection 0.5 mg (COMPLETED) 2055 (Given - Provider: Jet Joya RN) 0.5 mg, Intravenous, ONCE, On Tue03/10/22 at 2055, For 1 dose HYDROmorphone (PF) (DILAUDID) injection 0.5 mg (COMPLETED) 2151 (Given - Provider: Jet Joya RN) 0.5 mg, Intravenous, ONCE, On Tue03/10/22 at 2150, For 1 dose lidocaine 1% with EPINEPHrine 1:100,000 injection 10 mL (COMPLET ED) 2008 (Given - Provider: Jet Joya RN) 10 mL, Intradermal, ONCE, On Tue03/10/22 at 1935, For 1 dose LORazepam (ATIVAN) injection 0.5 mg (COMPLETED) 1834 (Given - Provider: Jet Joya RN) 0.5 mg, Intravenous, ONCE, On Tue 2 at 1835, For 1 dose, This drug may cause significant respiratory depression. Monitor respiratory status and vital signs carefully for 1 hour after each dose. ondansetron (ZOFRAN) injection 4 mg (COMPLETED) 2151 (Given - Provider: Jet Joya RN) 4 mg, Intravenous, ONCE, Administer over 2-5 Minutes, On Tue03/10/22 at 2155, For 1 dose, Irritant. oxyCODONE (ROXICODONE) tablet 5 mg (COMPLETED) 2008 (Given - Provider: Jet Joya RN) 5 mg, Oral, ONCE, On Tue03/10/22 at 2005, For 1 dose silver nitrate (ARZOL) Misc 1 applicator (COMPLETED) 2007 (Given - Provider: Jet Joya RN) Topical, ONCE, On Tue03/10/22 at 1920, For 1 dose, Apply to nose tranexamic acid (CYKLOKAPRON) TOPICAL (injection used topically) (COMPLETED) 1835 (Given - Provider: Magali Cardozo RN) Topical, ONCE, On Tue03/10/22 at 1830, F or 1 dose, Withdraw solution from vial or ampule and apply topically using gauze. EXTERNAL USE. documented in this encounter Care Teams Shoes Salesperson Relationship Specialty Start Date End Date [facility] And PCP - General 03/10/22 [facility]- [address] [place] [id number] documented as of this encounter
--- OUTSIDE RECORDS SUMMARY | 2022-08-13 01:26 | XMS_ITS | Encounter Summary ---
:1995 Author Organization [place] Address [address] [place] [id number] Care Team Providers Name Role Phone [facility] Clinics- Encounter Details Date Type Department Care Team Description 03/10/2022 Travel Social History Tobacco Use Types Packs/Day Years Used Date Never Assessed Sex Assigned at Date Recorded Not on file COVID-19 Exposure Response Date Recorded In the last 10 days, have you been in contact with No / Unsu re 03/10/2022 6:06 PM CDT someone who was confirmed or suspected to have Coronavirus/COVID-19? documented as of this encounter Plan of Treatment Not on filedocumented as of this encounter Visit Diagnoses Not on filedocumented in this encounter Care Teams Assistant Site Manager Relationship Specialty Start Date End Date [facility] And PCP - General 03/10/22 [facility]- [address] [place] [address] documented as of this encounter
[2022-08-13 01:28] LABS: Slide Review Reflex No
== END 2022-08-13 02:41 | disposition home or self-care (01) ==
PROVIDERS: Emergency Provider Family Medicine; PCP Family Medicine
DX: O20.0 Threatened abortion (principal); Z3A.08 8 weeks gestation of pregnancy
CPT/HCPCS: 36415; 76817; 84702; 85025; 86900; 86901; 99284

== ENCOUNTER 2022-08-16 08:57 | Outpatient (CLI) | payer BC, SELFPAY ==
--- NOTE | 2022-08-16 09:15 | CRLHL7_ITS ---
For Patients: As a result of the Century Cures Act, medical imaging exams and procedure reports are released immediately into your electronic medical record. You may view this report before your referring provider. If you have questions, please contact your health care provider. CLINICAL HISTORY: Follow up miscarriage Comparison ultrasound 08/13/2022 TECHNIQUE: Real time, newman scale images were acquired of the pelvis using a transabdominal and transvaginal approach. Color Doppler analysis was performed of the ovaries. FINDINGS: A 2 centimeter x 2 cm hyperechoic lesion the right posterior likely reflecting a fibroid endometrium heterogeneous measuring 7 millimeters. No intrauterine gestational sac. Possible tiny amount fluid in the endometrium. Both ovaries are unremarkable. No adnexal no free-fluid seen no vascularity seen in the endometrium. IMPRESSION: 1. No intrauterine seen. Endometrium measures 7 millimeters mildly heterogeneous no blood flow within the endometrium. Recommend correlation with HCG levels. Dictated by Afsaneh Berumen MD @ 08/16/2022 10:29:13 AM (Electronically Signed)
--- OUTSIDE RECORDS SUMMARY | 2022-08-16 09:31 | XMS_ITS | Encounter Summary ---
:1995 Author Organization [place] Address [address] [place] [address] Care Team Providers Name Role Phone [facility] Provi [facility] Clinics- Encounter Details Date Type Department Care [...] on filedocumented in this encounter Care Teams Restaurant Hourly Manager Relationship Specialty Start Date End Date [facility] PCP - General 03/10/22 [facility]- [address] [place] [address] documented as of this encounter
--- OUTSIDE RECORDS SUMMARY | 2022-08-16 09:31 | XMS_ITS | Encounter Summary ---
:1995 Author Organization [place] Address [address] [place] [address]. [place] [address] Care Team Providers Name Role Phone [facility] Provi leticia Clinics- Reason for Visit Reason Comments Epistaxis Auth/Cert Specialty Diagnoses / Procedures Referred By Contact Refer red To Contact Med Surg Diagnoses Epistaxis Epistaxis Uu Obs [address] [facility] [place] [address] Phone: Fax: Referral ID Status Reason Start Date Expiration Date Visits Requ ested Visits Authorized [id number] 1 1 Encounter Details Date Type Department Care Team Description 03/10/2022 - Emergency [facility] Aram Ortega DO [address] [place] [address] Epistaxis; 03/11/2022 [facility] Unit 6D Vernon Torres MD [facility] [place] [address] Encounter for screening laboratory testi ng for severe acute respiratory syndrome coronavirus 2 (SARS-CoV-2); Observation [facility] Fawn Zambrano PA [address] [place] [address] [place] [address] [place]; [address] [facility] [place] [address] Social History Tobacco Use Types [...] Butler PA-C - 03/11/2022 4:11 PM CDT [facility] Hospitalist Discharge Summary Date of Admission: 03/10/2022 [...] interventions there and ENT recommended transfer to [facility] for neuro IR consult.??In ED here, HR [...] for 5 days -Follow-up with surgeon in [place] in 5 days for pack removal which [...] minutes discharging this patient. Jessica Butler PA-C [facility] UNIT 6D OBSERVATION [facility] [address] [facility] [address] Physical Exam Vital Signs: Temp: 98.4 ??F [...] well perfused. Good turgor. Primary Care Physician [facility] Discharge Orders Reason for your hospital stay [...] sodium chloride (OCEAN) 0.65 % nasal spray [place] 1 spray into left nostril 4 times daily CONTINUE these medications which have NOT CHANGED Details sertraline (ZOLOFT) 100 MG tablet Take 100 mg by mouth daily Allergies Allergies Allergen Reactions ??? Afrin [Oxymetazoline] Rash ??? Tramadol Dizziness Associated attestation - Vernon Torres MD - 03/12/2022 10:18 AM CDT Physician Attestation I, Vernon Torres MD, personally saw and evaluated Bridgett Kyle as part of a shared visit. [...] 2021 100 MG tablet daily sodium chloride [place] 1 spray into 0 03/11/2022 (OCEAN) 0.65 [...] CDT Pt admitted to Obs unit from [facility]. documented in this encounter H&P Notes Fawn Quevedo PA - 03/11/2022 2:30 AM CDT [facility] History and Physical - ED Observation Service Date of Admission: 03/10/2022 Assessment & Plan Bridgett Kyle is a 26 year old female admitted on 03/10/2022. She has a history of anxiety/depression who had a??bilateral??turbinate cautery on 03/05/22 with ??Michela??through [facility]??who presents via EMS from [facility] ED for further evaluation of uncontrolled epistaxis. ##. Epistaxis: Patient had cauterization performed 03/05/22 due to enlarged turbinates making it hardto breath. She had nasal packs removed on 03/09/22 in clinic. Denies strenuous activity, trauma, taking blood thinners. Yesterday while washing her face ~5:30pm, her nose spontaneously began bleeding. P/t [facility] ED where bleeding still uncontrolled despite intervention. Reports feeling lightheaded. Hadcontinued bleeding despite interventions there and ENT recommended transfer to [facility] for neuro IR consult. In ED here, [...] for 5 days -Follow-up with surgeon in [place] in 5 days for pack removal which [...] Dr. Torres. RADHA Friedman ED Observation Service [facility] Securely message with the [employer] Web Console (learn more here) Text page via [facility] Paging/Directory Chief Complaint Epistaxis History is obtained from the patient History of Present Illness Bridgett Kyle is a 26 year old female with a history of anxiety/depression who had a??bilateral??turbinate cautery on 03/05/22 with ??Michela??through [facility]??who presents via EMS from [facility] ED for further evaluation of uncontrolled epistaxis. [...] the bleeding so she presented to the [facility] ED where bleeding still uncontrolled despite intervention. She reports feeling lightheaded. She reported to the ED that she had bad nosebleeds as a kid, but nothing like this one. She last ate around 12 pm. No other symptoms noted. Does not take any blood thinners. ?? Per chart review patient presented to the [facility] ED for left-sided epistaxis onset 30 min prior to arrival. She had continued bleeding despite interventions there and ENT recommended transfer to [facility] for neuro IR consult. Per [facility] ED note, initial attempt to control [...] of bleeding, however, bleeding did recur. At [facility] she was given: 1834: Ativan, 0.5 [...] 10:32 AM CDT Physician Attestation I, Vernon Torres MD, have reviewed the advanced practice provider's [...] turbinate reduction performed by Dr. Abernathy in [facility] recently. Earlier today she started experiencing a copious left-sided nosebleed and she was seen at the [facility] emergency department. ENT saw her at [facility] where he saw bleeding coming from superior [...] throat. She was thus transferred to the [place] emergency department for neuro IR embolization. ENT [...] cm Merocel's were then tied together andplaced [id number] in the left nare and inflated with [...] old female with a recent turbinoplasty at [facility] presents for a transfer for epistaxis. Two 8 cm Merocel's were placed in the left nare. We discussed avoiding any nose blowing, lifting, bending. We recommended that she make an appointment with her surgeon in [place] to have her nasal packing removed in 3-5 days. If she is unable to make an appointment in [place] she can contact our ENT clinic to [...] 03/10/2022 11:09 PM CDT Pt transferred from [facility] for uncontrolled nosebleed needing IR intervention. Given 4mg zofran and 0.5mg dilaudid en route. Drew Moctezuma RN - 03/10/2022 11:09 PM CDT Bed: ED02 Expected date: Expected time: Means of arrival: [facility] - 03/10/2022 11:08 PM CDT ED Provider Note [facility] History Chief Complaint Patient presents with ??? Epistaxis The history is provided by the patient, the EMS personnel and medical records. Bridgett Kyle is a 26 year old female who had a bilateral turbinate cautery on 03/05 through [facility] who presents via EMS from [facility] ED for further evaluation of uncontrolled epistaxis. Given 4mg zofran and 0.5mg dilaudid en route. She has remained hemodynamically stable. Patient reports that her nose spontaneously began bleeding while washing her face tonight. She was unable to stop the bleeding so she presented to the [facility] ED where bleeding still uncontrolled despite intervention. She reports bleeding down the back of the throat unless leaning forward. She had bad nosebleeds as a kid, but nothing like this until the one prompting the cauterization a few days ago. She last ate around 12 pm. No other symptoms noted. Per chart review patient presented to the [facility] ED for left-sided epistaxis onset 30 min prior to arrival. She had continued bleeding despite interventions there and ENT recommended transfer to [facility] for neuro IR consult. Interventions @ [facility]: 183: Ativan, 0.5 mg, IV 1835: [...] Status --------- ------ CBC with platelets and d...[[id number]] Final result Please view results for these tests on the individual orders. Medications - No data to display Assessments & Plan (with Medical Decision Making) This is a 26-year-old female who was transferred due to epistaxis. Patient was seen at [facility] with epistaxis that occurred earlier today. [...] Regalado, am serving as a trained medical examiner to document services personally performed by Aram Ortega DO, based on the provider's statements to me. Aram Regalado DO, was physically present and have reviewed and verified the accuracy of this note documented by Lolita Adorno. -- Aram Ortega DO [facility] EMERGENCY DEPARTMENT 03/10/2022 Aram Ortega DO 03/11/22 [...] City/State/ZIP Code Phon e Number [place] [address] Lab [address] [facility], Room 3580 INR (03/11/2022 5:52 AM CDT) [...] LAB - BLOOD ORDERABLES Performing Organization Address City/[facility] Phon e Number [place] [address] Lab [address] [facility], Room 3-580 (ABNORMAL) Comprehensive metabolic panel (03/11/2022 [...] and gender (Mesha et al., NEJM, DOI: 10.1056/HKKDun5468107) This result was previously suppressed fr om the chart. Specimen Anatomical Collection Method / Collection Time Recei radha Time (Source) Location / Volume Laterality Blood STRUCTURE OF LEFT Venipuncture / 03/11/2022 5:52 03/11 6:19 UPPER LIMB / Unknown AM CDT AM CDT Unknown Fawn GARCIA LAB - BLOOD ORDERABLES Performing Organization Address City/State/ZIP Code Phon e Number [facility] [place] [address] Lab [address] [facility] J Building, Room 3-580 Asymptomatic COVID-19 Virus (Coronavirus) by PCR Oropharynx (03/11/2022 1:52 AM CDT) [facility] Method Time Signature SARS CoV2 PCR Negative [...] the Xpert Xpress SARS-CoV-2 Assay on the unbound technologiesXpert [employer] Systems. A dditional information about this [...] COVID-19. This test was validated by the [facility] Infectious [facility] Diagnostic [facility]. This lab oratory is certified under the Clinical Laboratory Improvement Amen dments of 1987 (CLIA-88) as qualified to perform high complexity lab oratory testing. Aram Ortega DO LAB - MICRO GENERAL ORDERABL ES Performing Organization Address City/State/ZIP Code Phon e Number [facility] [place] [place] [id number] Diag. Lab [address] [facility], Room D297 documented in this encounter Visit [...] analgesic side effects. Hold while on IV WORKERS COMPENSATION CLAIMS ADJUSTER or with regular IV opioid dosing. Given [...] Henson RN) 0.5 mg, Intravenous, ONCE, On [place] 03/11/22 at 0245, For 1 dose ondansetron [...] analgesic side effects. Hold while on IV WORKERS COMPENSATION CLAIMS ADJUSTER or with regular IV opioid dosing. HYDROmorphone [...] ondansetron (ZOFRAN) injection 4 mg(Linked Group 3) 6867 (Given - Provider: Calli Ordoñez RN) 4 [...] (ZOFRAN-ODT) ODT tab 4 mg(Linked Group 3) 5813 (See Alternative - Provider: Calli Ordoñez RN) [...] ed. oxyCODONE IR (ROXICODONE) tablet 10 mg 1247 (Given - Provider: Calli Ordoñez RN) 10 [...] after each naloxone dose. Consider transfer to [facility] if patient respiratory parameters hav e not [...] Irritant.
documented in this encounter Care Teams Thermal Surfacing Machine Operator Relationship Specialty Start Date End Date [facility] And PCP - General 03/10/22 [facility] [address] [place] [id number] documented as of this encounter
--- OUTSIDE RECORDS SUMMARY | 2022-08-16 09:31 | XMS_ITS | Clinical Summary ---
:1995 Author Organization [place] Address [address] [place] [address] Care Team Providers Name Role Phone [facility], [facility] Provi leticia Clinics- [...] machinery, working, or with alcohol. sodium chloride [place] 1 spray into 0 03/11/2022 Active (OCEAN) [...] Patients (6 to 64 Years) this to [facility] Insurance Payer Benefit Plan / Subscriber ID Effective Dates Phone Addre ss Type Group BCBS BCBS OUT OF [id number] 2020-Prese [phone] [address] [address] [place] [address] Advance Directives For more information, please contact: [phone] Latest Code Status on File Code Status Date Activated Date Inactivated Comments Full Code 03/11/2022 4:07 PM Code status determined by: Discussion with patient/ legal de cision maker Full Code 03/11/2022 2:21 AM 03/11/2022 4:07 PM All basic an d advanced life-sustaining interventions ar e performed as appropriate Code status determined by: Discussion with patient/ legal de cision maker Care Teams Four Slide Operator Relationship Specialty Start Date End Date [facility] And PCP - General 03/10/22 [facility] [address] [place] [id number]
--- OUTSIDE RECORDS SUMMARY | 2022-08-16 09:31 | XMS_ITS | Encounter Summary ---
:1995 Author Organization [facility] Address [facility] [place] [address] Care Team Providers Name Role Phone [facility] leticia Clinics- Reason for Visit Reason Comments Epistaxis Encounter Details Date Type Department Care Team Description 03/10/2022 [facility] Damir Aquino MD Epistaxis Emergency Dept [facility]HA [address] [facility] [address] [place] [address] [facility] [phone] [place] [address] (Wo rk) Social History Tobacco Use Types [...] one option. There are nasal sprays available [id number] for this purpose as well. Using ahumidifier [...] the bleeding temporarily, but that is okay. [place] decongestant nose spray (like Afrin??) into both nostrils to constrict the blood vessels. Sit or stand while bending forward slightly at the waist. Do not lie down or tilt your head back. This may cause you to swallow blood and can lead to vomiting. Photogrammetric Stereo Compiler the soft part of BOTH nostrils at [...] 2021 100 MG tablet daily sodium chloride [place] 1 spray into 0 03/11/2022 (OCEAN) 0.65 [...] turbinate cautery performed by Dr. Abernathy in [place] recently. The patient had nasal packs removed from her nose in his clinic recently and then today had severe bleeding from the leftnasal cavity which she could not control at home. She does not take any blood thinners. No nasal trauma. No general bleeding tendencies. No past medical history on file. Current Facility-Administered Medications Medication ??? lidocaine 1% with EPINEPHrine 1:100,000 1 %-1:482532 injection ??? lidocaine 1% with EPINEPHrine 1:100,000 injection 10 mL ??? oxyCODONE (ROXICODONE) tablet 5 mg ??? silver nitrate (ARZOL) [facility] 1 applicator No current outpatient medications on [...] instructed to follow-up with her surgeon in [place] in 5 days for pack removal which [...] Joya DAHLIA - 03/10/2022 10:26 PM CDT [facility] ED Nurse Handoff Report Bridgett Kyle is a 26 year old female ED Chief complaint: Epistaxis . ED Diagnosis: Final diagnoses: Epistaxis Allergies: No Known Allergies Code Status: Full Code Activity level - Baseline/Home: Independent. Activity Level - Current: Independent. Lift room needed: No. Bariatric: No Mechanic Welder Truck Driver Needed: No Isolation: No. Infection: Not Applicable. [...] cautery on Tuesday. Nose started bleeding just COAT ROOM ATTENDANT. Large clot noted at nasal passage. Blood [...] cautery on Tuesday. Nose started bleeding just COAT ROOM ATTENDANT. Large clot noted at nasal passage. Blood dripping down back of throat. Damir Aquino MD - 03/10/2022 6:05 PM CDT History Chief Complaint: Epistaxis HPI Bridgett Kyle is a 26 year old female who had a bilateral turbinate cautery on 03/[address] Abernathy through [facility] who presents with epistaxis. Per the patient, [...] Dr. Allison of the ENT service from [facility] regarding patient's presentation, findings, and plan of care. [address] Allison again regarding the patient's status, who has had continued bleeding despite interventions here. [address] Flores of the neuro IR service from [facility] regarding patient's presentation, findings, and plan of care. [address] Mahoney of the emergency medicine service from the [facility] regarding patient's presentation, findings, and plan of care. Interventions: 1834: Ativan, 0.5 mg, IV 1835: Cyklokapron, Topical 1905: Normal Saline, 1 liter, IV bolus 2007: Arzol, 2 Applicators, Topical 2008: Lidocaine 1% with epi, 10 mL, Intradermal 2008: Oxycodone, 5 mg, Oral 2055: Dilaudid, 0.5 mg, IV Disposition: The patient was transferred to the [facility] emergency room via EMS. Impression & [...] from transfer. Given limited bed availability at [facility], patient will be transferred to the ER at the [facility] for ENT and neuro IR consultation. [...] HCG QUALitative (blood) (03/10/2022 7:04 PM CDT) [facility] Method Time Signature hCG Serum Negative Negative CARMEN 03/10/2022 [facility] Qualitative 7:58 PM CDT Comment: This test is for screening purp oses. Results should be interpreted along with the clinical picture. Confirmation testing is available if warranted by ordering [id number], HCG Quantitative . Specimen Anatomical Collection Method / Collection Time Recei radha Time (Source) Location / Volume Laterality Blood BLOOD SPECIMEN / Venipuncture / 03/10/2022 7:04 2021 7:14 Unknown Unknown PM CDT PM CDT Damir Aquino MD LAB - BLOOD ORDERABLES Performing Organization Address City/State/ZIP Code Phon [place] [address] Care [facility] [address] Lab (1st floor, no room number) CBC with platelets and differential (03/10/2022 6:37 PM CDT) Analysis Performed At [facility] Time Signature WBC Count 7.0 4.0 [...] City/State/ZIP Code Ph[place] [address] Care Lab [address] [...] dose lidocaine 1% with EPINEPHrine 1:100,000 1 %-1:956779 injection Starting on Tue03/10/22 at 1929, For [...] USE. documented in this encounter Care Teams Milling General Superintendent Relationship Specialty Start Date End Date [facility] And PCP - General 03/10/22 [facility] [address] [place] [id number] documented as of this encounter
== END 2022-08-16 08:58 | disposition home or self-care (01) ==
LOC: US 08:57
PROVIDERS: PCP Family Medicine; Visit Provider Advanced Practice Midwife
DX: O02.1 Missed abortion (principal)
CPT/HCPCS: 76830; 84702

== ENCOUNTER 2022-11-26 12:44 | Outpatient (CLI) | payer BC, SELFPAY ==
--- NOTE | 2022-11-26 13:00 | CRLHL7_ITS ---
For Patients: As a result of the Cures Act, medical imaging exams and procedure reports are released immediately into your electronic medical record. You may view this report before your referring provider. If you have questions, please contact your health care provider. INDICATION: First trimester scan, establish dates. COMPARISON: None. TECHNIQUE: Real-time newman-scale imaging of the pelvis was performed. FINDINGS: Sonographic imaging demonstrates a single living intrauterine gestation. The embryo demonstrates a regular cardiac rate measuring 167 beats per minute. The embryo`s crown-rump length measurement of 2.9 cm corresponds to a gestational age of 9 weeks 5 days with a sonographic due date of 06/26/2023. There is a normal-appearing yolk sac. There are no gross abnormalities noted within the embryo at this early state of development. The gestational sac has a normal appearance. There is no evidence of a perigestational hemorrhage. The amount of fluid within the sac appears appropriate for gestational age. The cervix is closed. The myometrium appears normal. The ovaries are of normal size. Simple right ovarian cyst is present measuring 2.2 cm. There are no suspicious fluid collections noted in the cul-de-sac. IMPRESSION: Single living intrauterine with sonographic gestational age 9 weeks 5 days and sonographic due date of 06/26/2023. Dictated by Ryan Merchant MD @ 11/26/2022 2:04:39 PM (Electronically Signed)
== END 2022-11-26 12:45 | disposition home or self-care (01) ==
LOC: US 12:45
PROVIDERS: PCP Family Medicine; Visit Provider Registered Nurse
DX: Z34.91 Encounter for supervision of normal pregnancy, unspecified, first trimester (principal); Z3A.09 9 weeks gestation of pregnancy
CPT/HCPCS: 76817; 86592; 86703; 86762; 86787; 86803; 86850; 86900; 86901; 87086; 87340

== ENCOUNTER 2023-02-08 12:46 | Outpatient (CLI) | payer BC, SELFPAY ==
--- NOTE | 2023-02-08 13:00 | CRLHL7_ITS ---
For Patients: As a result of the Century Cures Act, medical imaging exams and procedure reports are released immediately into your electronic medical record. You may view this report before your referring provider. If you have questions, please contact your health care provider. INDICATION: anatomy. TECHNIQUE: Transabdominal ultrasound obstetrical imaging was performed. FINDINGS: FIDELIA by LMP: 06/28/2023. Gestational age: 20 weeks 0 days. position: Breech. Placenta position: Posterior. Placenta tip to internal os: 6.9 cm. Umbilical cord: 3-vessel cord. Placental insertion: Eccentric. Amniotic fluid: 4.0 cm SDP. Anatomy Observed Structures Cerebellum 2.0 cm 30 w 1 d. Cisterna magna 4 mm. Nuchal fold 3 mm. Lateral ventricle 5 mm. CSP Midline falx Choroid plexus Spine Stomach Abdominal cord insertion Urinary bladder Kidneys Diaphragm Nose/lips Orbital view Profile Upper extremities Lower extremities Hands Feet 4-chamber heart LVOT RVOT Biometry BPD 4.4 cm, 19 w 2 d, 22%. HC 17.2 cm, 19 w 5 d, 30%. AC 15.6 cm, 20 w 6 d, 71%. FL 3.4 cm, 20 w 5 d, 66%. FL/AC 22%. HC/AC ratio 1.1. heart rate 141 bpm. age by this US 20 w 1 d. FIDELIA by this US 06/27/2023. EFW 363 grams, 0 pounds, 13 ounces. Percentile by FIDELIA 78%. cord insertion is suboptimal. Outflow tracts are not well visualized. Left foot is suboptimally seen. Upper extremities are suboptimally visualized. IMPRESSION: 1. Single live intrauterine gestation. 2. No gross anomaly is visualized. 3. cord insertion is suboptimally visualized. 4. Left foot is suboptimally seen. 5. Upper extremities are suboptimally seen. 6. Outflow tracts are suboptimally seen. Dictated by Afsaneh Berumen MD @ 02/08/2023 4:06:30 PM (Electronically Signed)
== END 2023-02-08 12:47 | disposition home or self-care (01) ==
LOC: US 12:46
PROVIDERS: PCP Family Medicine; Visit Provider Registered Nurse
DX: Z34.92 Encounter for supervision of normal pregnancy, unspecified, second trimester (principal); Z3A.20 20 weeks gestation of pregnancy
CPT/HCPCS: 76805

== ENCOUNTER 2023-02-22 12:41 | Outpatient (CLI) | payer BC, SELFPAY ==
--- NOTE | 2023-02-22 13:00 | CRLHL7_ITS ---
For Patients: As a result of the Century Cures Act, medical imaging exams and procedure reports are released immediately into your electronic medical record. You may view this report before your referring provider. If you have questions, please contact your health care provider. INDICATION: Follow-up outflow tracts, upper extremities, feet, cord insert. COMPARISON: OB ultrasound 02/08/2023. TECHNIQUE: Ultrasound OB pelvis with real time newman scale imaging and color Doppler analysis. FINDINGS: Sonographic imaging demonstrates a single living intrauterine gestation. The fetus has a regular cardiac rate of 145 beats per minute. The fetus has a cephalic orientation. The placenta lies posteriorly without evidence of placenta previa. Amniotic fluid volume appears normal with single deepest pocket measuring 4.0 cm. The cervix appears closed. There is a normal appearance of the facial profile, four chamber heart, left and right ventricular outflow tracts, abdominal cord insertion site, three-vessel cord, and four extremities. IMPRESSION: 1. Single living intrauterine gestation in cephalic position with heart rate 145 beats per minute. 2. Normal appearance of the facial profile, four chamber heart, left and right ventricular outflow tracts, abdominal cord insertion site, three-vessel cord, and four extremities. Dictated by Kesha Miller MD @ 02/23/2023 3:24:02 AM (Electronically Signed)
== END 2023-02-22 12:42 | disposition home or self-care (01) ==
LOC: US 12:42
PROVIDERS: PCP Family Medicine; Visit Provider Advanced Practice Midwife
DX: O35.GXX0 Maternal care for other (suspected) fetal abnormality and damage, fetal upper extremities anomalies, not applicable or unspecified (principal); O35.HXX0 Maternal care for other (suspected) fetal abnormality and damage, fetal lower extremities anomalies, not applicable or unspecified; Z3A.00 Weeks of gestation of pregnancy not specified
CPT/HCPCS: 76815; 76816

== ENCOUNTER 2023-05-31 14:19 | Outpatient (CLI) | payer BC, SELFPAY ==
[2023-06-01 18:10] LABS: Strep B DNA Probe POSITIVE (Negative)
[2023-06-02 02:31] LABS: Strep B Pen/Amox Allergy No
== END 2023-05-31 14:20 | disposition home or self-care (01) ==
LOC: NFLDREF 14:20
PROVIDERS: PCP Family Medicine; Visit Provider Obstetrics & Gynecology
DX: Z34.93 Encounter for supervision of normal pregnancy, unspecified, third trimester (principal); Z3A.36 36 weeks gestation of pregnancy
CPT/HCPCS: 87081; 87653

== ENCOUNTER 2023-06-21 16:20 | Inpatient (IN) | payer BC, SELFPAY ==
[2023-06-21 16:36] VITALS: TEMP 36.8
[2023-06-21 16:37] VITALS: BP 145/83; PULSE 105; PULSE 90; O2SAT 100
[2023-06-21 16:40] VITALS: BMI 31.4
--- NOTE | 2023-06-21 17:39 | W.PM.LDBA ---
Subjective History of Present Illness Narrative: Patient is being admitted to Labor and Delivery for elective IOL. She is a 27 year old -0-1-0 woman at 39 weeks gestation. Of note, her BP is mildly elevated at presentation. OB PROBLEM LIST: : Fredo Genetic screening: Declines Declines chlamydia and gonorrhea testing. 1. Anxiety and depression. Sertraline 100mg. PHQ: 11 KRISTINE: 3. Mood improving as nausea decreases. Therapy referral placed. 2. Family h/o PP psychosis in sister and grandmother 3. Missing views on anatomy scan, needs follow up for : cord insertion, left foot, upper extremities and outflow tracts. -Follow up imaging on 02/22/23: Normal 4. History of migraine headaches Her full history and physical was dictated by Dr. Hyde on 06/14/23. Please see this for details. OB - Problem Based A/P Additional Plan (1) : Status: Acute Plan: Patient desires elective induction of labor for management of mood symptoms. Unfavorable cervix. We discussed cervical ripening options of vaginal misoprostol tablets and Cook catheter. She favors the former. Category 1 tracing at this time. Continuous monitoring when on Pitocin and per protocol during ripening. GBS positive. Begin ampicillin for GBS prophylaxis. (2) Anxiety with depression: Status: Acute Plan: Continue sertraline at home doses. (3) Elevated blood pressure affecting , antepartum: Status: Acute Plan: HELLP labs and protein to creatinine ratio normal. Continue to monitor. Delivery/Labor/Induction Plan Induction method: per misoprostol protocol OB Result Labs Labs: CBC notable for hemoglobin of 10.8, normal platelets Normal BUN, creatinine, AST, ALT Protein to creatinine ratio is 0 OB Exam Physical Exam Vital signs: Pulse BP Pulse Ox 90 145/83 H 100 06/21/23 16:37 06/21/23 16:37 06/21/23 16:37 Narrative: Physical exam: General: No acute distress Psych: Alert and oriented x3, full affect HEENT: Normocephalic, atraumatic Heart: Regular rate and rhythm, no murmur rub or gallop Lungs: Clear to auscultation bilaterally Abdomen: Soft, nontender, gravid, uncertain lie on exam Lower extremities: Trace bilateral edema, no erythema Pelvic exam: Cervix 1 cm, 70%,-3, posterior, soft tracing: Baseline 130, accelerations present, initially intermittent variable decelerations, but none in last 30 minutes. Moderate variability.
[2023-06-21 17:45] VITALS: BP 136/83; PULSE 86
[2023-06-21 17:57] LABS: Basophils Absolute Auto 0.03 K/uL (0.00-0.30); Basophils Percent Auto 0.4 % (0.0-3.0); Eosinophils Percent Auto 1.2 % (0.0-7.0); Hematocrit 32.4 % (33.0-51.0); Hemoglobin* 10.8 gm/dL (12.0-16.0); Immature Granulocytes Abs Auto 0.03 K/uL (0.00-0.30); Immature Granulocytes Pct Auto 0.4 %; Lymphocytes Absolute Auto 2.03 K/uL (0.90-2.90); Lymphocytes Percent Auto 24.6 % (20-44); Mean Corpuscular HGB Conc 33 gm/dL (32-36); Mean Corpuscular Hemoglobin 29 pg (26-34); Mean Corpuscular Volume 87 fL (80-100); Monocytes Percent Auto 7.2 % (0.0-11.0); Neutrophils Absolute Auto 5.46 K/uL (1.7-7.0); Neutrophils Percent Auto 66.2 % (42.0-72.0); Platelet Count* 227 K/uL (140-440); RDW Coefficient of Variation % 12.6 % (11.5-15.5); Red Blood Count 3.74 m/uL (4.00-5.20); White Blood Count* 8.24 K/uL (4.50-11.00)
[2023-06-21 18:24] LABS: Slide Review Reflex No
[2023-06-21 18:34] LABS: Aspartate Amino Transferase* 28 U/L (12-35); Creatinine* 0.7 mg/dL (0.5-1.5); Est. Creatinine Clearance* 119.62; Estimated Glomerular Filt Rate 120 ml/min
[2023-06-21 18:35] LABS: Alanine Aminotransferase* 15 U/L (4-35); Blood Urea Nitrogen* 10 mg/dL (5-24)
[2023-06-21] MEDS: miSOPROStoL 25 MCG/0.25 TABLET VAGINAL ×2 (18:59→22:01)
[2023-06-21] MEDS: AMPICILLIN 2 GM in 0.9 % SODIUM CHLORIDE Mini-bag 100 ML IVPB (18:59)
[2023-06-21] MEDS: SERTRALINE 100 MG TABLET PO (19:32)
[2023-06-21 19:34] LABS: Total Protein Urine 7 mg/dL
[2023-06-21 19:35] LABS: Creatinine Urine 156.5 mg/dL
[2023-06-21 21:07] VITALS: BP 148/82; PULSE 76; PULSE 79; O2SAT 97
[2023-06-21 21:08] VITALS: BP 140/73; PULSE 75; PULSE 76; O2SAT 93
[2023-06-21] MEDS: hydrOXYzine pamoate 25 MG CAPSULE 100 MG PO (22:01)
[2023-06-21] MEDS: MORPHINE 10 MG/ML inj IM (22:02)
[2023-06-21] MEDS: AMPICILLIN 1 GM in 0.9 % SODIUM CHLORIDE Mini-bag 100 ML IVPB (23:06)
[2023-06-21 23:11] VITALS: BP 113/58; PULSE 77; RESP 16; TEMP 37
[2023-06-22] VITALS (60 sets, daily range): BP systolic 94–154; BP diastolic 51–87; PULSE 62–112; RESP 16–18; TEMP 36.8–36.9; O2SAT 97–100
[2023-06-22] MEDS: fentaNYL 100 MCG/2 ML inj IVP (01:19)
[2023-06-22] MEDS: LACTATED RINGERS 1000 ML 1,000 ML 999 ML IV ×3 (01:30→09:34)
[2023-06-22] MEDS: ROPIVACAINE 0.2% 100 ml 100 ML 12 MG EPIDURAL (02:11)
--- NOTE | 2023-06-22 02:26 | PM.ANBPRC ---
[facility] Medical History (Updated 06/21/23 @ 19:56 by Tammy Waite MD) Insomnia ?G47.00 - Insomnia, unspecified (ICD-10) Miscarriage ?O03.9 - Complete or unspecified spontaneous without complication (ICD-10) Cyst of paranasal sinus ?J34.1 - Cyst and mucocele of nose and nasal sinus (ICD-10) Surgical History H/O nasal septoplasty ?Z98.890 - Other specified postprocedural states (ICD-10) H/O wrist surgery ?Z98.890 - Other specified postprocedural states (ICD-10) Family History Sister psychosis Family/Other psychosis Social History What is your current living situation?: I presently have a place to live Problems where you live: no known problems In the past 12 months, utilities in danger of being shut off: no In the past 12 mos, have been you worried that your food would run out before you had money to buy more?: never true In the past 12 mos, the food you bought just didn't last and you didn't have money to buy more?: never true Smoking Status: Never smoker How often do you have a drink containing alcohol: never AUDIT-C Alcohol total score: 0 Non-prescribed substance use: denies use How often does anyone, including family, friends and others, physically hurt you: never How often does anyone, including family, friends and others, insult or talk down to you: never How often does anyone, including family, friends and others, threaten you with harm: never How often does anyone, including family, friends and others, scream or curse at you: never Little interest or pleasure in doing things: not at all Feeling down, depressed, or hopeless: not at all Meds Home Medications and Allergies Home Medications Medication Instructions Recorded Confirmed Type prenat.vits,kassie,cmp-xkxk-rkoup 1 tab PO QDAY 11/26/22 06/21/23 History doxylamine succinate 25 mg tablet 50 mg PO QHS PRN 12/24/22 06/21/23 History aluminum hydrox-magnesium carb 95 30 ml PO TID-QID PRN 06/14/23 06/21/23 History mg-358 mg/15 mL oral suspension (Gaviscon) sertraline 100 mg tablet 100 mg PO QDAY 06/21/23 06/21/23 History Allergies Allergy/AdvReac Type Severity Reaction Status Date / Time tramadol AdvReac racing Verified 06/21/23 12:49 heart Results Labs Labs: Laboratory Results - last 24 hr 06/21/23 06/21/23 06/21/23 17:40 17:45 19:00 WBC 8.24 RBC 3.74 L Hgb 10.8 L Hct 32.4 L MCV 87 MCH 29 MCHC 33 RDW Coeff of Heath 12.6 Plt Count 227 Neut % (Auto) 66.2 Lymph % (Auto) 24.6 [place] % (Auto) 7.2 Eos % (Auto) 1.2 Baso % (Auto) 0.4 Neut # (Auto) 5.46 Lymph # (Auto) 2.03 [place] # (Auto) 0.60 Eos # (Auto) 0.10 Baso # (Auto) 0.03 Abs Immat Gran (auto) 0.03 Imm/Tot Granulo (auto) 0.4 BUN 10 Creatinine 0.7 Estimated Creat Clear 119.62 Estimated GFR 120 AST 28 ALT 15 Urine Creatinine 156.5 Protein/Creatinin Ratio 0.00 Urine Total Protein 7 Blood Type O Positive Antibody Screen NEGATIVE Vital Signs Vital Signs: Last Vital Signs Temp 98.6 F 06/21/23 23:11 Pulse 88 06/22/23 02:24 Resp 16 06/21/23 23:11 BP 137/75 06/22/23 02:24 Pulse Ox 99 06/22/23 02:16 Weight: 93.894 kg Height: 172.72 cm Anesthesia Procedures Epidural Insertion Patient Location: OB Start Time: :30 Stop Time: : Start Date: 06/22/23 Stop Date: 06/22/23 Reason for Block: procedure for pain Patient Position: sitting Performed By: Eugenia Lerma Preanesthetic Checklist: IV checked, risks and benefits discussed, monitors and equipment checked, timeout performed and anesthesia consent Prep: chlorhexidine gluconate Monitoring: blood pressure monitoring, continuous pulse oximetry and heart rate Approach: midline Vertebral Space: lumbar (1-5) Epidural Technique: DREAD saline Needle Type: Tuohy needle Injection Technique: continuous catheter Needle gauge: 17 Needle Length (cm): 10 cm Needle Insertion Depth (cm): 8 Catheter Gauge: 19 Catheter Type: multi-orifice Catheter at skin depth (cm): 14 Test Dose Result: negative and lidocaine 1.5% with epinephrine 1 to 200,000
[2023-06-22] MEDS: AMPICILLIN 1 GM in 0.9 % SODIUM CHLORIDE Mini-bag 100 ML IVPB (03:15)
[2023-06-22] MEDS: OXYTOCIN 30 unit/500 ML in NS 30 UNIT/500 ML BAG 300 UNIT IVPB (06:51)
[2023-06-22] MEDS: LIDOCAINE 1 % PF 30 ML INJECTION (06:51)
--- NOTE | 2023-06-22 07:51 | W.PM.VAGDEL1 ---
Procedure Delivery date: 06/22/23 Procedure Done: Global Procedure Details: The patient is a 27 year-old G 1 P 0 admitted on 06/21/2023 at 39 Weeks gestation for elective induction of labor.? Cervical exam on admission was 1 cm/70 % effaced/-3 station with membranes intact in vertex presentation.? heart rate demonstrated baseline 130 bpm with moderate variability, positive accelerations, intermittent brief variable decelerations; a category 2 tracing.? Variable decelerations resolved with development of category I tracing thereafter. She had cervical ripening with 2 doses of vaginal Cytotec, and then progressed without any augmentation through the remainder of her labor. ? Labor Analgesia:? Epidural ? Pitocin:? No ? Labor onset:? 3:11 a.m. on 06/22/2023 SROM occurred at 6:11 a.m. on 06/22/2023 with clear fluid. ? Complete:? 5:58 a.m. ? Pushing:? 6:11 a.m. ? heart tones during second stage were notable for intermittent late and variable deceleration. ? At 6:50 a.m. a viable female infant delivered in vertex OA presentation over second-degree perineal laceration via spontaneous vaginal delivery.? Infant was initially placed on maternal abdomen, then held by nurse per patient request.? Cord was clamped and cut after a 30 second delay.? Nose and mouth were bulb suctioned.? Infant weight pending.? 8 at 1 minute and 9 at 5 minutes.? Shoulder dystocia: No.? Nuchal cord: No. ? Placenta delivered spontaneously and complete at 7:11 a.m. with a 3 vessel cord. ? Mother and were stable after delivery. ? Lacerations:? Second-degree laceration with complicated stellate vaginal component around the hymeneal ring, resulting in excess blood loss, repaired with multiple sutures of 2 0 Vicryl after infiltration with 10 mL of 1% lidocaine. Vaginal packing was placed after repair to aid in hemostasis. ? Blood loss: 800 mL. Blood loss measurement type: QBL ? Sponge and needles counts are correct. Events: Labor Induction Delivery monitor: external FHT Route of delivery: Episiotomy description: None Laceration description: Perineal - 2nd Degree Delivery repair: Vicryl Estimated blood loss (mL): 800 Anesthesia type: Epidural Disposition: floor Gender: Female total score - 1 minute: 8 total score - 5 minute: 9
[2023-06-22 10:00] LABS: Basophils Percent Auto 0.1 % (0.0-3.0); Eosinophils Percent Auto 0.2 % (0.0-7.0); Hematocrit 31.7 % (33.0-51.0); Hemoglobin* 10.4 gm/dL (12.0-16.0); Immature Granulocytes Pct Auto 0.3 %; Lymphocytes Percent Auto 10.9 % (20-44); Mean Corpuscular HGB Conc 33 gm/dL (32-36); Mean Corpuscular Hemoglobin 29 pg (26-34); Mean Corpuscular Volume 87 fL (80-100); Monocytes Percent Auto 7.9 % (0.0-11.0); Neutrophils Percent Auto 80.6 % (42.0-72.0); Platelet Count* 198 K/uL (140-440); RDW Coefficient of Variation % 12.6 % (11.5-15.5); Red Blood Count 3.63 m/uL (4.00-5.20); White Blood Count* 13.57 K/uL (4.50-11.00)
[2023-06-22 10:02] LABS: Slide Review Reflex No
[2023-06-22 10:21] LABS: Fibrinogen* 444 mg/dL (200-450); Partial Thromboplastin Time* 24 Seconds (23-33)
[2023-06-22] MEDS: NAPROXEN 250 MG TABLET PO ×3 (11:00→22:56)
[2023-06-22] MEDS: DOCUSATE SODIUM 100 MG CAPSULE PO (11:00)
--- NOTE | 2023-06-22 12:31 | PM.OBPNVD1 ---
OB - PN: Obj Exam Physical Exam: Vital signs: Temp Pulse Resp BP Pulse Ox O2 Del Method 98.4 F 73 17 121/72 97 Room Air 06/22/23 11:12 06/22/23 11:12 06/22/23 11:12 06/22/23 11:12 06/22/23 11:12 06/22/23 11:12 OB - PN: Obj Data Labs Labs: Laboratory Results - last 24 hr 06/21/23 06/21/23 06/21/23 17:40 17:45 19:00 WBC 8.24 RBC 3.74 L Hgb 10.8 L Hct 32.4 L MCV 87 MCH 29 MCHC 33 RDW Coeff of Heath 12.6 Plt Count 227 Neut % (Auto) 66.2 Lymph % (Auto) 24.6 [place] % (Auto) 7.2 Eos % (Auto) 1.2 Baso % (Auto) 0.4 Neut # (Auto) 5.46 Lymph # (Auto) 2.03 [place] # (Auto) 0.60 Eos # (Auto) 0.10 Baso # (Auto) 0.03 Abs Immat Gran (auto) 0.03 Imm/Tot Granulo (auto) 0.4 APTT Fibrinogen BUN 10 Creatinine 0.7 Estimated Creat Clear 119.62 Estimated GFR 120 AST 28 ALT 15 Urine Creatinine 156.5 Protein/Creatinin Ratio 0.00 Urine Total Protein 7 Blood Type O Positive Antibody Screen NEGATIVE 06/22/23 09:50 WBC 13.57 H RBC 3.63 L Hgb 10.4 L Hct 31.7 L MCV 87 MCH 29 MCHC 33 RDW Coeff of Heath 12.6 Plt Count 198 Neut % (Auto) 80.6 H Lymph % (Auto) 10.9 L [place] % (Auto) 7.9 Eos % (Auto) 0.2 Baso % (Auto) 0.1 Neut # (Auto) 10.90 H Lymph # (Auto) 1.50 [place] # (Auto) 1.10 H Eos # (Auto) 0.00 Baso # (Auto) 0.00 Abs Immat Gran (auto) 0.00 Imm/Tot Granulo (auto) 0.3 APTT 24 Fibrinogen 444 BUN Creatinine Estimated Creat Clear Estimated GFR AST ALT Urine Creatinine Protein/Creatinin Ratio Urine Total Protein Blood Type Antibody Screen OB - PN: A/P Delivery Assessment and Plan (1) : Status: Acute (2) Anxiety with depression: Status: Acute (3) Elevated blood pressure affecting , antepartum: Status: Acute
[2023-06-23 04:45] VITALS: BP 102/61; PULSE 74; RESP 16; TEMP 36.7; O2SAT 97
[2023-06-23] MEDS: NAPROXEN 250 MG TABLET PO (04:46)
[2023-06-23 06:55] LABS: Hemoglobin* 8.7 gm/dL (12.0-16.0)
--- NOTE | 2023-06-23 07:50 | PM.OBDSVD1 ---
DS: Providers Provider Time Seen by Provider: 07:51 Date Seen: 06/23/23 Date of admission: 06/21/23 16:20 Primary care physician: Tirso Cox MD Admitting Clinician: Tammy Waite MD Attending Physician on discharge: Tammy Waite MD Date of Discharge: 06/23/23 DS: Diagnosis Discharge Diagnosis (1) examination following vaginal delivery: Status: Acute Exam Narrative: Exam Narrative: VSS, afebrile GENERAL APPEARANCE: ?normal affect, alert, no distress MOOD: ?appropriate HEENT: normocephalic, neck supple, full ROM CHEST: ?Symmetrical chest wall movement. ?Normal respiratory effort. ?Clear to auscultation HEART: ?regular rate and rhythm ABDOMEN: ?soft, non-tender. Uterine fundus is firm, at Umbilicus, Midline and is appropriate for the stage of recovery. ?Bowel sounds present. PERINEUM: ?mild edema of the perineum, there is a 2nd degree laceration that is healing well. Packing removed previously. EXTREMITIES: ?normal and no edema Const: Vital Signs, click to edit/add: Vital Signs - 24 hr 06/22/23 08:03 06/22/23 08:18 06/22/23 08:33 Temperature Pulse Rate 81 83 72 Pulse Rate [Blood Pressure Cuff] Respiratory Rate Blood Pressure 122/75 132/74 127/76 Blood Pressure [Le ft Arm] Pulse Oximetry Oxygen Delivery [facility] 06/22/23 08:48 06/22/23 09:03 06/22/23 09:03 Temperature 98.4 F Pulse Rate 90 81 Pulse Rate [Blood Pressure Cuff] Respiratory Rate Blood Pressure 129/78 130/78 Blood Pressure [Le ft Arm] Pulse Oximetry Oxygen Delivery [facility] 06/22/23 09:20 06/22/23 09:28 06/22/23 09:32 Temperature Pulse Rate 81 68 Pulse Rate [Blood Pressure Cuff] Respiratory Rate Blood Pressure 110/66 94/51 L Blood Pressure [Le ft Arm] Pulse Oximetry 100 Oxygen Delivery [facility] 06/22/23 09:34 06/22/23 09:37 06/22/23 09:42 Temperature Pulse Rate 62 Pulse Rate [Blood Pressure Cuff] Respiratory Rate Blood Pressure 111/66 Blood Pressure [Le ft Arm] Pulse Oximetry 99 100 Oxygen Delivery [facility] 06/22/23 11:04 06/22/23 11:08 06/22/23 11:12 Temperature 98.4 F 98.4 F Pulse Rate 78 Pulse Rate [Blood Pressure Cuff] 73 Respiratory Rate 16 17 Blood Pressure 121/72 Blood Pressure [Le ft Arm] 121/72 Pulse Oximetry 98 97 Oxygen Delivery Me thod Room Air 06/22/23 15:46 06/22/23 19:32 06/22/23 22:50 Temperature 98.2 F 98.5 F 98.2 F Pulse Rate Pulse Rate [Blood Pressure Cuff] 77 74 74 Respiratory Rate 16 18 18 Blood Pressure Blood Pressure [Le ft Arm] 104/67 115/75 120/80 Pulse Oximetry 97 97 98 Oxygen Delivery Me thod Room Air Room Air Room Air 06/23/23 04:45 Temperature 98.0 F Pulse Rate Pulse Rate [Blood Pressure Cuff] 74 Respiratory Rate 16 Blood Pressure Blood Pressure [Le ft Arm] 102/61 Pulse Oximetry 97 Oxygen Delivery Me thod Room Air Documenting provider has reviewed patient's vital signs: yes OB - DS: Summary Hospital Course Hospital Course: Bridgett is a 27 y.o. G 2 P 1 who was admitted to [facility] for an elective IOL r/t mood. ?She had an uncomplicated NVD. She did have elevated BPs on admit, which resolved. The patient feels well. ?The pain is well controlled with current medications. ?She has no new complaints. ?She is bottle feeding and reports things are going well.? the patient has done well.? Vitals have been stable.? She has remained afebrile.? Has a good appetite, is tolerating a general diet. ?She is voiding without difficulty.? She is passing gas and has not had a bowel movement.? She is ambulating and denies any dizziness.? Has Small amount of rubra lochia. She is planning an IUD for prevention. Problems: none plan: Discharge home with baby. Follow up in 2 weeks and 6 weeks. Acute anemia, continue iron supplementation for 6 weeks Elevated BP on admit, resolved shortly after Peripartum Data delivery method: Vaginal Laceration description: Perineal - 2nd Degree [place] Infant Gender: Female Discharge Plan: Home Status at Discharge Functional status at discharge: independent ambulation Overall status at discharge: patient is progressing back to baseline Time Spent with Patient Time attestation: Total time spent providing and/or coordinating discharge services: Time spent: Less than 30 minutes Discharge Plan Discharge Disposition: Home, Self-Care Date of Admission: 06/21/23 16:20 Primary Care Provider: Tirso Cox Condition: Stable Anticipated Discharge Date/Time: 06/23/23 10:00 Discharge Medications: New docusate sodium 100 mg Capsule 100 mg PO BID PRNQty: 100 0RF Rx Instructions: Take 1 cap 1-2 times a day as needed for constipation ferrous sulfate 325 mg (65 mg iron) tablet 325 mg PO Q OTHER DAY Qty: 25 0RF Continued prenat.vits,kassie,gwh-ltcr-mcktd Tablet 1 tab PO QDAY doxylamine succinate 25 mg tablet 50 mg PO QHS PRN Gaviscon 95-358 mg/15 mL suspension 30 ml PO TID-QID PRN sertraline 100 mg tablet 100 mg PO QDAY eszopiclone [Lunesta] 2 mg tablet 2 mg PO QHS PRN (Reason: insomnia) Qty: 90 2RF Discontinued ondansetron 4 mg tablet,disintegrating 4 mg PO Q6-8H PRN (Reason: nausea and vomiting) Qty: 30 0RF Hold Instructions: Order Change promethazine 25 mg tablet 25 mg PO Q6H PRN (Reason: headache) Qty: 14 0RF Discharge Orders: Discharge Order (Routine); Ordered 06/23/23 Ordered By: Cindy Lew Patient Education: OB Over the Counter Medication Information, OB Vaginal/Bottle Feeding Additional Instructions: Follow up in 2 weeks and 6 weeks Iron supplement every other day for 6 weeks. Activity Level: Activity as Tolerated Discharge Diet: Regular Follow Up Appointments: Tirso Cox MD [Primary Care Provider] - Forms: Instant [employer] Info Instructions
[2023-06-23] MEDS: DOCUSATE SODIUM 100 MG CAPSULE PO (09:30)
[2023-06-23 09:45] VITALS: BP 113/70; PULSE 84; RESP 16; TEMP 36.6; O2SAT 98
== END 2023-06-23 11:22 | disposition home or self-care (01) | DRG 560 ==
PROVIDERS: Obstetrics & Gynecology; Admitting Provider Obstetrics & Gynecology; PCP Family Medicine; Visit Provider Obstetrics & Gynecology
DX: O99.824 Streptococcus B carrier state complicating childbirth (principal); O99.344 Other mental disorders complicating childbirth; F41.8 Other specified anxiety disorders; R03.0 Elevated blood-pressure reading, without diagnosis of hypertension; O70.1 Second degree perineal laceration during delivery; O90.81 Anemia of the puerperium; D62 Acute posthemorrhagic anemia; Z3A.39 39 weeks gestation of pregnancy; Z37.0 Single live birth
CPT/HCPCS: 01967; 36415; 59200; 82565; 82570; 84156; 84450; 84460; 84520; 85018; 85025; 85384; 85730; 86850; 86900; 86901; A9270; J0290; J2001; J2270; J2371; J2795; J3010; J7120; S0020

== ENCOUNTER 2024-01-18 18:59 | Emergency (ER) | payer BC, SELFPAY ==
[2024-01-18 19:04] VITALS: BP 119/86; PULSE 74; RESP 16; TEMP 36.4; O2SAT 97; BMI 26.2
--- NOTE | 2024-01-18 19:21 | ED_ITS ---
HPI - Animal Bite General Chief Complaint: Animal Bite Stated Complaint: Suspected L index finger bat bite Time Seen by Provider: 01/18/24 19:01 History of Present Illness HPI narrative: This 28-year-old female comes in from urgent care where she presented because of 2 small bites in her left index finger that happened sometime overnight last night. She states that she did not wake up with any injury episode but noticed a little bit of blood on the sheets. She was not aware of any bat or other animal in her home but the 2 puncture wounds on her left index finger are rather suspicious as they are approximately a cm apart. She was seen at urgent care and sent here to receive rabies immunoglobulin and vaccination. Related Data Home Medications Medication Instructions Recorded Confirmed sertraline 100 mg tablet 100 mg PO QDAY 06/21/23 01/18/24 Previous Rx's Medication Instructions Recorded amoxicillin 875 mg-potassium 1 tab PO BID 10 days #20 tabs 01/18/24 clavulanate 125 mg tablet Allergies Allergy/AdvReac Type Severity Reaction Status Date / Time tramadol AdvReac racing Verified 08/02/23 14:03 heart Review of Systems Status of ROS: Reports: 10 or more systems reviewed and unremarkable except as noted in History and below Narrative: Constitutional: No fevers, no weight gain or loss. Eyes: No discharge. No vision changes. HENT: No congestion, no sore throat, no ear pain. Cardiovascular: No chest pain, no palpitations. Respiratory: No shortness of breath, no wheezes, no cough. Gastrointestinal: No abdominal pain, no vomiting, no diarrhea. Genitourinary: No dysuria, no hematuria. Musculoskeletal: Normal range of motion. Skin: No rashes, no pruritis. Neurological: No dizziness, weakness, sensory change, speech change. Endo/Heme/Allergies: No bruising or bleeding. No polydipsia. Pysch: no suicidality, no anxiety, no insomnia. All other systems reviewed and are negative. [facility] Medical History (Updated 01/18/24 @ 19:27 by Gato Gonzalez MD) History of vaginal delivery (06/22/23) Elevated blood pressure affecting , antepartum (06/2023) ?O16.9 - Unspecified maternal hypertension, unspecified trimester (ICD-10) Miscarriage (08/13/22) ?O03.9 - Complete or unspecified spontaneous without complication (ICD-10) Surgical History (Updated 07/05/23 @ 08:54 by Nimco Rosales) History of lipoma (01/11/22) ?Z86.018 - Personal history of other benign neoplasm (ICD-10) H/O nasal septoplasty ?Z98.890 - Other specified postprocedural states (ICD-10) H/O wrist surgery ?Z98.890 - Other specified postprocedural states (ICD-10) Family History (Updated 07/05/23 @ 09:01 by Nimco Rosales) Sister psychosis Grandmother psychosis Social History What is your current living situation?: I presently have a place to live Problems where you live: no known problems In the past 12 months, utilities in danger of being shut off: no In past 12 months, lack of transportation kept you from medical appts, meetings, work, or getting things needed for daily living: no In the past 12 mos, have been you worried that your food would run out before you had money to buy more?: never true In the past 12 mos, the food you bought just didn't last and you didn't have money to buy more?: never true Smoking Status: Never smoker How often do you have a drink containing alcohol: never AUDIT-C Alcohol total score: 0 Non-prescribed substance use: denies use How often does anyone, including family, friends and others, physically hurt you : never How often does anyone, including family, friends and others, insult or talk down to you: never How often does anyone, including family, friends and others, threaten you with harm: never How often does anyone, including family, friends and others, scream or curse at you: never Little interest or pleasure in doing things: not at all Feeling down, depressed, or hopeless: not at all Exam Narrative: Exam Narrative: Constitutional: Well-developed, well-nourished, no acute distress. HEENT: Normocephalic, atraumatic. Neck: Normal range of motion. Nontender. Supple. Heart: Regular. No murmurs. Normal rate. Intact distal pulses. Lungs: Clear to auscultation. No chest discomfort. No wheezes, rhonchi, or rales. Abdomen: Normal bowel sounds. Nontender. No rebound tenderness. Genitalia: Deferred. Back: No midline tenderness. Normal range of motion. Extremities: Normal range of motion. Two small puncture wounds on the left index finger. Skin: Intact. No rash. Warm. No erythema or pallor. Neurologic: No altered sensation. No weakness. Alert and oriented. Psychiatric: No suicidality. No anxiety or depression. No insomnia. Nursing notes and vitals signs are reviewed. Const: Vital Signs, click to edit/add: Vital Signs - 24 hr 01/18/24 19:04 Temperature 97.6 F Pulse Rate [Pulse Oximeter] 74 Respiratory Rate 16 Blood Pressure [Ri ght Upper Arm] 119/86 Pulse Oximetry 97 Oxygen Delivery Me thod Room Air Course Vital Signs Vital signs: Initial Vital Signs Temperature 97.6 F 01/18/24 19:04 Temperature Source Temporal Artery Scan 01/18/24 19:04 Pulse Rate 74 01/18/24 19:04 Pulse Rhythm Regular 01/18/24 19:04 Respiratory Rate 16 01/18/24 19:04 Blood Pressure 119/86 01/18/24 19:04 Blood Pressure Mean 97 01/18/24 19:04 Blood Pressure Position Sitting 01/18/24 19:04 Pulse Oximetry 97 01/18/24 19:04 Oxygen Delivery Method Room Air 01/18/24 19:04 Vital Signs Temperature 97.6 F 01/18/24 19:04 Pulse Rate 74 01/18/24 19:04 Respiratory Rate 16 01/18/24 19:04 Blood Pressure 119/86 01/18/24 19:04 Pulse Oximetry 97 01/18/24 19:04 Oxygen Delivery Method Room Air 01/18/24 19:04 Temperature 97.6 F 01/18/24 19:04 Pulse Rate 74 01/18/24 19:04 Respiratory Rate 16 01/18/24 19:04 Blood Pressure 119/86 01/18/24 19:04 Pulse Oximetry 97 01/18/24 19:04 Oxygen Delivery Method Room Air 01/18/24 19:04 MDM - Animal Bite MDM Narrative Medical decision making narrative: This patient comes in for rabies series as she has an injury to her left index finger as described above. The patient received immunoglobulin and vaccination injections today and is instructed to return on days 3, 7, and 14 for remaining vaccination injections. Discharge Plan Discharge Clinical Impression: Bite by animal Patient Disposition: Home, Self-Care Condition: Stable Additional Instructions: Return on January 20, , and for remaining series of injections to complete the rabies tomorrow vaccination and immunoglobulin series. Follow up with MD or return if worsening. Prescriptions: No Action amoxicillin-pot clavulanate 875-125 mg tablet 1 tab PO BID 10 Days Qty: 20 0RF sertraline 100 mg tablet 100 mg PO QDAY Follow Up/Referrals: Tirso Cox MD [Primary Care Provider] - Stand Alone Forms: [employer] Info Instructions
[2024-01-18] MEDS: RABIES IMMUNE GLOBULIN 150 UNIT/ML INJ 1560 UNIT INFILTRATI (20:02)
== END 2024-01-18 20:23 | disposition home or self-care (01) ==
PROVIDERS: Emergency Provider Emergency Medicine Emergency Medical Services; PCP Family Medicine
DX: S61.251A Open bite of left index finger without damage to nail, initial encounter (principal); W64.XXXA Exposure to other animate mechanical forces, initial encounter
CPT/HCPCS: 90377; 90471; 90675; 99283; 99284

== ENCOUNTER 2024-02-01 11:04 | Outpatient (RCR) | payer BC, SELFPAY ==
[2024-01-21 16:35] VITALS: BP 139/78; PULSE 77; RESP 16; TEMP 36.8; O2SAT 99
--- NOTE | 2024-01-21 16:45 | ED.NURSE ---
Rabies Vaccine (Imovax, ([id number], (E)2025-08) administered to left deltoid by this hand sign writer at 1645. Patient declines rabies VIS as she already obtained a copy at previous visit. Patient will return on January 24 and January 31 as written on order.
[2024-01-25 12:24] VITALS: BP 130/78; PULSE 66; RESP 18; TEMP 37.2; O2SAT 96
[2024-02-01 11:16] VITALS: BP 112/69; PULSE 74; RESP 16; TEMP 36.7; O2SAT 96
== END 2024-02-01 11:15 | disposition home or self-care (01) ==
PROVIDERS: PCP Family Medicine; Visit Provider Emergency Medicine Emergency Medical Services
DX: Z29.14 Encounter for prophylactic rabies immune globulin (principal); Z23 Encounter for immunization
CPT/HCPCS: 80307; 90471; 90675

== ENCOUNTER 2025-05-01 15:30 | Outpatient (CLI) | payer BC, SELFPAY ==
[2025-05-03 17:17] LABS: HPV Source Cervix; HPV, High Risk by TMA Not Detected
== END 2025-05-01 15:31 | disposition home or self-care (01) ==
PROVIDERS: PCP Family Medicine; Visit Provider Registered Nurse
DX: Z12.4 Encounter for screening for malignant neoplasm of cervix (principal); N63.10 Unspecified lump in the right breast, unspecified quadrant; N63.20 Unspecified lump in the left breast, unspecified quadrant
CPT/HCPCS: 87624; 87625; 88141; 88142

== ENCOUNTER 2025-05-08 09:40 | Outpatient (CLI) | payer BC, SELFPAY ==
--- NOTE | 2025-05-08 09:45 | CRLHL7_ITS ---
For Patients: As a result of the Cures Act, medical imaging exams and procedure reports are released immediately into your electronic medical record. You may view this report before your referring provider. If you have questions, please contact your health care provider. BILATERAL DIAGNOSTIC MAMMOGRAM WITH COMPUTER-AIDED DETECTION AND TOMOSYNTHESIS BILATERAL BREAST ULTRASOUND CLINICAL HISTORY: BILATERAL breast lumps. COMPARISON: None. TECHNIQUE: Digital BILATERAL mammogram in four projections with computer-aided detection. Tomosynthesis was used. Real-time ultrasound imaging of BILATERAL breasts with imaging documentation. BREAST COMPOSITION: The breasts are extremely dense, which lowers the sensitivity of mammography. FINDINGS: 3D CC/MLO BILATERAL mammogram images submitted. No suspicious masses or architectural distortion. No suspicious calcifications. No adenopathy. Targeted LEFT breast ultrasound performed at 6 o`clock, 3 cm from the nipple, and targeted RIGHT breast ultrasound performed at 2 o`clock, 3 cm from the nipple. Normal dense fibroglandular tissue is present. No fibrocystic change. No solid mass. IMPRESSION: No suspicious findings are present. No evidence of malignancy. RECOMMENDATIONS: Age-appropriate screening mammography. A lay language report of this examination will be provided to the patient. BI-RADS Category 2: Benign Dictated by Ryan Merchant MD @ 05/08/2025 11:00:20 AM /sp SP/Dictated by: Ryan Merchant MD @ 05/08/2025 11:00:00 AM (Electronically Signed)
--- NOTE | 2025-05-08 10:15 | CRLHL7_ITS ---
For Patients: As a result of the Century Cures Act, medical imaging exams and procedure reports are released immediately into your electronic medical record. You may view this report before your referring provider. If you have questions, please contact your health care provider. PLEASE SEE BILATERAL BREAST DIAGNOSTIC MAMMOGRAM PERFORMED SAME DAY. CRL:sp SP/Dictated by: Ryan Merchant MD @ 05/08/2025 11:00:00 AM (Electronically Signed)
--- OUTSIDE RECORDS SUMMARY | 2025-05-09 00:16 | XMS_ITS | Patient Health Record ---
Author Organization [facility] Address [address] [place] [address] [id number] Care Team Providers Care Yard Inspector Name Role Phone [place], Doctor Primary Care Provider Reason For Referral No Information Plan Of Treatment No Information Insurance Providers Payer Name Payer Address Payer Phone Subscriber Number Group Number Insured Name Patient Relationship to Insured Coverage Start Date Coverage End Date [place] [address] [address] [place] [address] [phone] [id number] Fredo Kyle Spouse - patient is the spouse of the insured
--- OUTSIDE RECORDS SUMMARY | 2025-05-09 00:16 | XMS_ITS | Clinical Summary ---
Author Organization [facility] Address [address] [place] [address] Care Team Providers Care Front End Java Developer Name Role Phone [facility]- Primary Care Provider Allergies Active Allergy Reactions Criticality Noted Date Comments Oxymetazoline Rash Low 03/10/2022 Tramadol Dizziness Low 03/10/2022 Medications sertraline (ZOLOFT) 100 MG tablet Take 100 mg by mouth daily 2 Active oxyCODONE IR (ROXICODONE) 5 MG tabletIndicatio ns:Epistaxis Take 1-2 tablets (5-10 mg) by mouth every 6 hours as needed for moderate to severe pain or breakthrough pain This medicine can make you sleepy! Do not take this while driving, operating heavy machinery, working, or with alcohol. 20 tablet 2 Active sodium chloride (OCEAN) 0.65 % nasal spray [place] 1 spray into left nostril 4 times daily 2 Active Active Problems Problem Noted Date Diagnosed Date Epistaxis 03/11/2022 Social History Tobacco Use Types Packs/Day Years Used Date Smoking Tobacco: Never Assessed Adolescent Education Answer Date Record ed Getting School Help Needed Not on file 08/06 Comments No Sex and Gender Information Value Date Recorded Sex Assigned at Not on file Legal Sex Female 6:05 PM CDT Gender Identity Not on file Sexual Orientation Not on file Last Filed Vital Signs Vital Sign Reading Time Taken Comments Blood Pressure 137/90 03/11/2022 9:00 AM CDT Pulse 64 03/11/2022 9:00 AM CDT Temperature 36.9 C (98.4 F) 03/11/2022 9:00 AM CDT Respiratory Rate 16 03/11/2022 9:00 AM CDT Oxygen Saturation 98% 03/11/2022 9:00 AM CDT Inhaled Oxygen Concentration - - Weight 72.6 kg (160 lb) 03/11/2022 3:47 AM CDT Height 170.2 cm (5' 7) 03/11/2022 3:47 AM CDT Body Mass Index 25.06 03/11/2022 3:47 AM CDT Plan of Treatment Not on file Insurance [employer] OUT OF STATE Advance Directives For more information, please contact: [phone] * Full Code (Latest Code Status on File) Date Activated Date Inactivated Comments 03/11/2022 4:07 PM Question Answer Comments Code status determined by: Discussion with yazmin nt/ legal decision maker * Full Code Date Activated Date Inactivated Comments 03/11/2022 2:21 AM 03/11/2022 4:07 PM All basic an d advanced life-sustaining interventions are performed as appropriate Question Answer Comments Code status determined by: Discussion with sooe nt/ legal decision maker Care Teams Front End Java Developer Relationship Specialty Start Date End Date [facility]- [address] [place] [address] PCP - General 03/10/22
== END 2025-05-08 09:41 | disposition home or self-care (01) ==
LOC: MAMMO 09:41
PROVIDERS: PCP Family Medicine; Visit Provider Registered Nurse
DX: N63.10 Unspecified lump in the right breast, unspecified quadrant (principal); N63.20 Unspecified lump in the left breast, unspecified quadrant; R92.343 Mammographic extreme density, bilateral breasts
CPT/HCPCS: 76642; 77066; G0279